=== PATIENT | female | born 1930 | race Two or more races ===

== ENCOUNTER 2016-07-30 15:30 | Inpatient (IN) | payer MEDICARE ==
--- NOTE | 2016-07-30 17:00 | ED Physician Chart ---
Chief Complaint/HPI - Patient Information Date Seen:: 07/30/16 Time Seen:: 17:00 Chief Complaint:: FALL FROM A WHEEL CHAIR History of Present Illness:: This 86-year-old female was brought in by EMS after being found on the floor next to her bed. It is assumed the patient had an unwitnessed fall onto the carpet next to her bed. The patient was noted to have a fall earlier this a.m. from her wheelchair. The patient has been having frequent falling and is a fall risk. The patient is severely demented and unable to provide any additional information. Allergies:: Allergies Allergy/AdvReac Type Severity Reaction Status Date / Time No Known Allergies Allergy Verified 07/30/16 15:41 Vitals:: Vital Signs - 8 hr 07/30/16 15:42 Temp 98.0 F HR 72 RR 16 BP 134/84 O2 Sat % 97 Historian:: EMS, Other Review of Systems - Review of Systems General/Constitutional: Other ( This patient is demented and I am unable to obtain a reliable review of systems.) Past Medical History - Past Medical History Past Medical History: HTN, Dyslipidemia, Dementia Social History: Non Smoker, No Alcohol, No Drug Use, Care Facility Surgical History: None Medication: Reviewed Family Medical History - Family Member Mother History Unknown: Yes Physical Exam - Physical Examination General/Constitutional: Well-developed, well-nourished, No distress Other Gen/Cons comments:: Awake but not fully alert. Confused. Follow simple commands. Not ambulatory. Other Head comments:: The patient has a area of ecchymotic discoloration lateral to an above the left eye. There is also a palpable hematoma in the same region. The patient denies tenderness in the region. Eyes: Lids, conjuctiva normal, PERRL Other Eyes comments:: Unable to cooperate with the EOM examinations. Other Skin comments:: Ecchymotic discoloration as noted above ENMT: External ears, nose nl, Oropharynx nl, Tonsils nl Neck: Nontender, No JVD, No nuchal rigidity, No mass Respiratory: Nl effort/Exclusion, Clear to Auscultation, No Wheeze/Rhonchi/Rales Cardio Vascular: RRR, No murmur, gallop, rubs, NL S1 S2 GI: No tenderness/rebounding/guarding, No organomegaly, Normal BS's, Nondistended, No mass/bruits : No CVA tenderness Extremities: No tenderness or effusion, Full ROM Other Extremities comments:: Patient has no deformities of the upper or lower extremities. She has spontaneous movement of all four extremities but generalized weakness consistent with her age and sex. Other Neuro/Psych comments:: the patient is awake but not alert or cognizant. She follow some simple commands. Cranial nerves two through 11 appear intact. Patient has generalized weakness but moves all four extremities. Sensation is intact to light touch. Misc: Normal back, No paraspinal tenderness Other Misc comments:: No tenderness of the thoracic or lumbar spine. Labs/Radiology/EKG Results - Lab Results Results: Laboratory Last Values WBC 9.9 Th/cmm (4.8-10.8) 07/30/16 22:55 RBC 4.95 Mil/cmm (3.80-5.20) 07/30/16 22:55 Hgb 14.7 gm/dL (11.7-16.1) 07/30/16 22:55 Hct 43.5 % (35.0-45.0) 07/30/16 22:55 MCV 87.9 fl (81-100) 07/30/16 22:55 MCH 29.7 pg (27.0-31.0) 07/30/16 22:55 MCHC Differential 33.8 pg (28.0-36.0) 07/30/16 22:55 RDW 12.7 % (11.5-20.0) 07/30/16 22:55 Plt Count 356 Th/cmm (150-400) 07/30/16 22:55 MPV 7.5 fl 07/30/16 22:55 Neutrophils % 81.5 % (40.0-80.0) H 07/30/16 22:55 Lymphocytes % 12.3 % (20.0-50.0) L 07/30/16 22:55 Monocytes % 4.7 % (2.0-10.0) 07/30/16 22:55 Eosinophils % 1.5 % (0.0-5.0) 07/30/16 22:55 Basophils % 0.0 % (0.0-2.0) 07/30/16 22:55 Sodium 138 mEq/L (136-145) 07/30/16 22:55 Potassium 4.2 mEq/L (3.5-5.1) 07/30/16 22:55 Chloride 105 mEq/L (98-107) 07/30/16 22:55 Carbon Dioxide 28.8 mEq/L (21.0-31.0) 07/30/16 22:55 Anion Gap 8.4 (7.0-16.0) 07/30/16 22:55 BUN 23 mg/dL (7-25) 07/30/16 22:55 Creatinine 0.5 mg/dL (0.6-1.2) L 07/30/16 22:55 Est GFR ( Amer) TNP 07/30/16 22:55 Est GFR (Non-Af Amer) TNP 07/30/16 22:55 BUN/Creatinine Ratio 46.0 07/30/16 22:55 Glucose 115 mg/dL (70-105) H 07/30/16 22:55 Calcium 10.3 mg/dL (8.6-10.3) 07/30/16 22:55 Urine Source RANDOM 07/31/16 11:55 Urine Color YELLOW 07/31/16 11:55 Urine Clarity TURBID (CLEAR) H 07/31/16 11:55 Urine pH 6.5 07/31/16 11:55 Ur Specific [place] 1.020 (1.005-1.030) 07/31/16 11:55 Urine Protein 100 mg/dL (NEGATIVE) H 07/31/16 11:55 Urine Glucose (UA) NEGATIVE mg/dL (NEGATIVE) 07/31/16 11:55 Urine Ketones 15 mg/dL (NEGATIVE) H 07/31/16 11:55 Urine Blood LARGE (NEGATIVE) H 07/31/16 11:55 Urine Nitrate NEGATIVE (NEGATIVE) 07/31/16 11:55 Urine Bilirubin SMALL (NEGATIVE) H 07/31/16 11:55 Urine Urobilinogen 4.0 E.U./dL (0.2 - 1.0) H 07/31/16 11:55 Ur Leukocyte Esterase MODERATE (NEGATIVE) H 07/31/16 11:55 Urine RBC >100 /hpf (0-5) H 07/31/16 11:55 Urine WBC 50-100 /hpf (0-5) H 07/31/16 11:55 Ur Epithelial Cells FEW /lpf (FEW) 07/31/16 11:55 Urine Bacteria MODERATE /hpf (NONE SEEN) 07/31/16 11:55 LAB INTERPRETATION: the CBC is unremarkable in that there is no leukocytosis or anemia. Electrolytes were all within normal parameters. Renal function is normal. The glucose is mildly elevated. The UA is consistent with an acute UTI. CT scan of the head and cervical spine was negative for any acute traumatic injury. The expected degenerative changes are present. Assessment - Assessment General Assessment: CASE SUMMARY: this 86-year-old female was brought to the emergency department from her nursing facility after a second fall today and evidence of fresh facial injury. CT scan of the head and C-spine was negative for any acute traumatic findings. The UA is consistent with a UTI. The case was discussed with the patient's primary care physician, DR HERMAN and he will admit the patient for further evaluation of her fall risk NOT and what measures might be taken to prevent further falling. MDM DDX OF FALL WITH HEAD INJURY. NOT Skull fracture based on negative CT of the head. NOT Intracranial hemorrhage based on negative CT scan. NOT Cervical spine fracture based on negative CT of the C-spine. NOT Hip Fractured based on physical examination. ED Septic Shock - . Is Septic Shock (SBP<90, OR Lactate>4 mmol\L) present?: No - <6hrs of presentation: Vital Signs: Vital Signs - 8 hr 07/30/16 15:42 Temp 98.0 F HR 72 RR 16 BP 134/84 O2 Sat % 97 Reassessment (Disposition) - Reassessment Reassessment Condition:: Unchanged - Diagnosis Diagnosis:: FALL RISK. CONTUSION LT FOREHEAD. DEMENTIA. HYPERTENSION. ED Discharge Plan - Patient Disposition Admit/Discharge/Transfer: Acute Care w/in this hosp Condition at Disposition: Improved
[2016-07-30 22:39] VITALS: BP 138/78
[2016-07-30] MEDS ORDERED: cefTRIAXone 1 GM in Sodium Chloride 0.9% 50 ML IV SCH (22:45)
[2016-07-30] MEDS ORDERED: Fleet Enema 135 mL RC PRN (23:05)
[2016-07-30] MEDS ORDERED: Acetaminophen 500 MG TAB PO PRN (23:05)
[2016-07-30] MEDS ORDERED: Magnesium Hydroxide (MOM) 30 mL UDC PO PRN (23:05)
[2016-07-30 23:11] LABS: % EOSINOPHILS 1.5 % (0.0-5.0); % LYMPHOCYTES 12.3 % (20.0-50.0); % MONOCYTES 4.7 % (2.0-10.0); % NEUTROPHILS 81.5 % (40.0-80.0); HEMATOCRIT 43.5 % (35.0-45.0); HEMOGLOBIN 14.7 gm/dL (11.7-16.1); MEAN CELL VOLUME 87.9 fl (81-100); MEAN CORPUSCULAR HEMOGLOBIN 29.7 pg (27.0-31.0); MEAN CORPUSCULAR HGB CONC 33.8 pg (28.0-36.0); MEAN PLATELET VOLUME 7.5 fl; NEUTROPHILE ABSOLUTE 8.1 Th/cmm (1.8-8.0); PLATELET COUNT 356 Th/cmm (150-400); RED BLOOD COUNT 4.95 Mil/cmm (3.80-5.20); RED CELL DISTRIBUTION WIDTH 12.7 % (11.5-20.0); WHITE BLOOD COUNT 9.9 Th/cmm (4.8-10.8)
[2016-07-30 23:19] LABS: ANION GAP 8.4 (7.0-16.0); BUN - UREA NITROGEN 23 mg/dL (7-25); CALCIUM SERUM 10.3 mg/dL (8.6-10.3); CARBON DIOXIDE 28.8 mEq/L (21.0-31.0); CHLORIDE 105 mEq/L (98-107); CREATININE - SERUM 0.5 mg/dL (0.6-1.2); GLUCOSE 115 mg/dL (70-105); POTASSIUM SERUM 4.2 mEq/L (3.5-5.1); SODIUM SERUM 138 mEq/L (136-145)
--- NOTE | 2016-07-31 06:49 | Consultation ---
Consult Note - Consult Note Service Date: 07/31/16 Referring Physician: Spencer Saldivar Consult Note: PHYSICIAN Consultation Note: Date of Admission: 07/30/16 Purpose of Consultation: suspect sepsis Chief Complaint: frequent falls. History of Present Illness: Patient LUIS QUESADA was admitted to location Medical/Surgical Unit I with S/P FALL, HEAD TRAUMA. 86 Y F female with PMH of dementia, HTN and hyperlipidemia brought from SNF for frequent falls and recent fall y'day. She is very confused and unable provide any history. ID consult was called to r/o sepsis. On initial evaluation, her temperature was 98 degree F and WBC count was 9900. Allergies Allergy/AdvReac Type Severity Reaction Status Date / Time No Known Allergies Allergy Verified 07/30/16 15:41 Vital Signs Temp 97.5 F 07/31/16 04:00 Pulse 90 07/31/16 04:00 Resp 18 07/31/16 04:00 BP 101/60 07/31/16 04:00 Pulse Ox 95 07/31/16 04:00 Intake & Output 07/30/16 07/30/16 07/31/16 06:59 18:59 06:59 Intake Total 0 Output Total 0 Balance 0 Intake: Oral 0 Output: Stool 0 Other: # Voids 3 Laboratory Results - last 24 hr 07/30/16 07/30/16 22:55 22:55 WBC 9.9 RBC 4.95 Hgb 14.7 Hct 43.5 MCV 87.9 MCH 29.7 MCHC Differential 33.8 RDW 12.7 Plt Count 356 MPV 7.5 Neutrophils % 81.5 H Lymphocytes % 12.3 L Monocytes % 4.7 Eosinophils % 1.5 Basophils % 0.0 Sodium 138 Potassium 4.2 Chloride 105 Carbon Dioxide 28.8 Anion Gap 8.4 BUN 23 Creatinine 0.5 L Est GFR ( Amer) TNP Est GFR (Non-Af Amer) TNP BUN/Creatinine Ratio 46.0 Glucose 115 H Calcium 10.3 Home Medication Medication Instructions Recorded Type Acetaminophen [Tylenol Extra 1,000 mg PO Q4HR PRN 07/30/16 History Strength] Acetaminophen [Tylenol] 650 mg PO Q4HR PRN 07/30/16 History Aspirin [Aspirin Chewable] 81 mg PO DAILY 07/30/16 History Atorvastatin Calcium [Lipitor] 40 mg PO HS 07/30/16 History Bisacodyl [Dulcolax 10 Mg Supp] 10 mg RC DAILY PRN 07/30/16 History Cholecalciferol (Vit D3) [Vitamin 1,000 iu PO DAILY 07/30/16 History D3] Docusate Sodium [Colace] 100 mg PO BID 07/30/16 History Donepezil Hcl [Aricept] 10 mg PO DAILY 07/30/16 History Fleet Enema [Fleet Enema] 135 ml RC Q48H PRN 07/30/16 History Magnesium Hydroxide [Milk of 30 ml PO HS PRN 07/30/16 History Magnesia] Memantine [Namenda] 10 mg PO HS 07/30/16 History amLODIPine Besylate [Norvasc] 10 mg PO DAILY 07/30/16 History Current Medications Generic Name Dose Route Start Last Admin Trade Name Freq PRN Reason Stop Dose Admin Acetaminophen 1,000 mg 07/30/16 23:05 Tylenol Extra Strength PO Q4HR PRN MOD PAIN Acetaminophen 650 mg 07/30/16 23:13 Tylenol PO 09/28/16 23:12 Q4H PRN MILD PAIN(1-3) Acetaminophen 650 mg 07/30/16 23:15 Tylenol PO 09/28/16 23:14 Q4H PRN FOR FEVER TEMP>101 Amlodipine Besylate 10 mg 07/31/16 09:00 Norvasc PO 09/29/16 08:59 DAILY [facility] Aspirin 81 mg 07/31/16 09:00 Aspirin Chewable PO 09/29/16 08:59 DAILY [facility] Atorvastatin Calcium 40 mg 07/31/16 21:00 Lipitor PO 09/29/16 20:59 HS [facility] Bisacodyl 10 mg 07/30/16 23:05 Dulcolax 10 Mg Supp RC 09/28/16 23:04 DAILY PRN Constipation Cholecalciferol 1,000 iu 07/31/16 09:00 Vitamin D3 PO 09/29/16 08:59 DAILY [facility] Docusate Sodium 100 mg 07/31/16 09:00 Colace PO 09/29/16 08:59 BID [facility] Donepezil HCl 10 mg 07/31/16 09:00 Aricept PO 09/29/16 08:59 DAILY [facility] Magnesium Hydroxide 30 ml 07/30/16 23:05 Milk Of Magnesia PO 09/28/16 23:04 HS PRN Constipation Memantine 10 mg 07/31/16 21:00 Namenda PO 09/29/16 20:59 HS [facility] Sodium Phosphate 135 ml 07/30/16 23:05 Fleet Enema RC 09/28/16 23:04 Q48H PRN IF DULCOLAX INEFFECTIVE Review of Systems: A 12 point ROS was reviewed with the pertinent positive and negatives noted in the HPI. Past Medical History Hx Diabetes No Hx HTN Yes Hx COPD No Hx Stroke No Hx Seizure No Hx Renal Disease No Hepatitis No Bleeding Problems No Depression No VRE No MRSA No Hx Dizziness No Anxiety No Hx Arthritis No Hx Asthma No Hx Blood Transfusion Reaction No Hx Cardiac Disease No Other Emotional/Behavior DEMENTIA Disorder Hx Eating Disorder No Hx Fainting/Syncope No Hx GI Problems/Ulcer No TB Diagnosis In Past 2 Years No Social History Smoking Status Unknown if ever smoked Drug Use No Alcohol Use UNKNOWN Family Medical History Nonsignificant. Physical Exam: General: Well nourished and well developed. No Acute Distress HEENT: EOMI Bilaterally, PERRLA Bilaterally, Head is normocephalic, atraumatic on inspection. Neck: Supple no JVD. Cardio: +S1/S2 Auscultated, RRR, no murmurs/rubs/gallops noted Respiratory: Clear to Auscultate Bilaterally Abdominal: Soft, Nondistended, Nontender to palpation x 4 quadrants Genital/Urinary: Extremities: No Edema noted in the lower extremities Neurological: Confused Cranial Nerves II-XII intact bilaterally, Gait Steady, No Focal Deficits noted. Assessment/Plan: 1. Frequent falls, r/o sepsis. There is no dign of sepsis. 2. Dementia 3. HTN. 4. Hyperlipidemia. Recommendations: Check the sepsis w/u. Check Hip X ray. Signed, Bill Gilbert M.D. [id number]/31/[id number]
[2016-07-31] MEDS: Aspirin 81mg Chewable Tab PO SCH (09:35)
--- NOTE | 2016-07-31 10:32 | Diagnostic Imaging Report ---
Pelvis (single view) HISTORY: Pain, fall The hip joints appear normal. No acute bony abnormalities. No fractures identified. Degenerative changes seen in the visualized lower lumbar spine. IMPRESSION: No acute abnormalities
--- NOTE | 2016-07-31 10:32 | Diagnostic Imaging Report ---
Right hip (2 views) HISTORY: Pain Joint space appears normal. The femoral head exhibits a normal contour. No focal lesions. No fractures. IMPRESSION: No acute abnormalities
--- NOTE | 2016-07-31 10:33 | Diagnostic Imaging Report ---
Left hip (2 views) HISTORY: Pain, trauma The joint space appears normal. The femoral head exhibits a normal contour. No focal lesions. No fractures. IMPRESSION: No acute abnormalities
[2016-07-31 14:01] LABS: URINE BILIRUBIN SMALL (NEGATIVE); URINE BLOOD LARGE (NEGATIVE); URINE COLOR YELLOW; URINE GLUCOSE (UA) NEGATIVE (NEGATIVE); URINE KETONE 15 mg/dL (NEGATIVE); URINE PH 6.5; URINE PROTEIN 100 mg/dL (NEGATIVE)
[2016-07-31 14:10] LABS: URINE EPITHELIAL CELLS FEW /lpf (FEW); URINE RBC >100 /hpf (0-5); URINE WBC 50-100 /hpf (0-5)
[2016-07-31 14:11] LABS: URINE BACTERIA MODERATE /hpf (NONE SEEN)
[2016-07-31] MEDS: Atorvastatin Calcium 10 MG TAB PO SCH (21:00)
--- NOTE | 2016-07-31 22:37 | History & Physical ---
This patient was brought from [facility]. Essentially, the patient fell and hit her face and the patient had head trauma, facial trauma with discoloration, and subcutaneous hematoma. The patient has lost of consciousness. The patient had a CAT scan in the Emergency Room. The Emergency Room report was negative. The patient's vital signs were stable. The patient was admitted from the ER. The patient has history of hypertension, history of hyperlipidemia, and history of dementia. The patient has history of frequent falls and the patient has no known allergies. PHYSICAL EXAMINATION: GENERAL: The patient is alert and oriented, well nourished, well-developed. HEENT: Normal. NECK: Supple. CARDIOVASCULAR: S1 and S2 heard. ABDOMEN: Soft. Bowel sounds are heard. MEDICAL NUMERICAL CONTROL OPERATOR: The patient was confused. DIAGNOSES: 1. History of falls. 2. History of rule out sepsis. 3. History of dementia. 4. History of hypertension and hyperlipidemia. 5. Scalp hematoma. The patient was admitted. The patient will have multiple x-rays. I will follow the patient and I will have Dr. Gilbert to see the patient. I will follow the patient. JOB# [id number]
[2016-08-01] MEDS: Aspirin 81mg Chewable Tab PO SCH (09:52)
--- NOTE | 2016-08-01 18:25 | General Progress Note ---
Subjective - Review of Systems Service Date: 08/01/16 Objective - Results Result Diagrams: 07/30/16 22:55 07/30/16 22:55 Recent Labs: Laboratory Last Values WBC 9.9 Th/cmm (4.8-10.8) 07/30/16 22:55 RBC 4.95 Mil/cmm (3.80-5.20) 07/30/16 22:55 Hgb 14.7 gm/dL (11.7-16.1) 07/30/16 22:55 Hct 43.5 % (35.0-45.0) 07/30/16 22:55 MCV 87.9 fl (81-100) 07/30/16 22:55 MCH 29.7 pg (27.0-31.0) 07/30/16 22:55 MCHC Differential 33.8 pg (28.0-36.0) 07/30/16 22:55 RDW 12.7 % (11.5-20.0) 07/30/16 22:55 Plt Count 356 Th/cmm (150-400) 07/30/16 22:55 MPV 7.5 fl 07/30/16 22:55 Neutrophils % 81.5 % (40.0-80.0) H 07/30/16 22:55 Lymphocytes % 12.3 % (20.0-50.0) L 07/30/16 22:55 Monocytes % 4.7 % (2.0-10.0) 07/30/16 22:55 Eosinophils % 1.5 % (0.0-5.0) 07/30/16 22:55 Basophils % 0.0 % (0.0-2.0) 07/30/16 22:55 Sodium 138 mEq/L (136-145) 07/30/16 22:55 Potassium 4.2 mEq/L (3.5-5.1) 07/30/16 22:55 Chloride 105 mEq/L (98-107) 07/30/16 22:55 Carbon Dioxide 28.8 mEq/L (21.0-31.0) 07/30/16 22:55 Anion Gap 8.4 (7.0-16.0) 07/30/16 22:55 BUN 23 mg/dL (7-25) 07/30/16 22:55 Creatinine 0.5 mg/dL (0.6-1.2) L 07/30/16 22:55 Est GFR ( Amer) TNP 07/30/16 22:55 Est GFR (Non-Af Amer) TNP 07/30/16 22:55 BUN/Creatinine Ratio 46.0 07/30/16 22:55 Glucose 115 mg/dL (70-105) H 07/30/16 22:55 Calcium 10.3 mg/dL (8.6-10.3) 07/30/16 22:55 Urine Source RANDOM 07/31/16 11:55 Urine Color YELLOW 07/31/16 11:55 Urine Clarity TURBID (CLEAR) H 07/31/16 11:55 Urine pH 6.5 07/31/16 11:55 Ur Specific [place] 1.020 (1.005-1.030) 07/31/16 11:55 Urine Protein 100 mg/dL (NEGATIVE) H 07/31/16 11:55 Urine Glucose (UA) NEGATIVE mg/dL (NEGATIVE) 07/31/16 11:55 Urine Ketones 15 mg/dL (NEGATIVE) H 07/31/16 11:55 Urine Blood LARGE (NEGATIVE) H 07/31/16 11:55 Urine Nitrate NEGATIVE (NEGATIVE) 07/31/16 11:55 Urine Bilirubin SMALL (NEGATIVE) H 07/31/16 11:55 Urine Urobilinogen 4.0 E.U./dL (0.2 - 1.0) H 07/31/16 11:55 Ur Leukocyte Esterase MODERATE (NEGATIVE) H 07/31/16 11:55 Urine RBC >100 /hpf (0-5) H 07/31/16 11:55 Urine WBC 50-100 /hpf (0-5) H 07/31/16 11:55 Ur Epithelial Cells FEW /lpf (FEW) 07/31/16 11:55 Urine Bacteria MODERATE /hpf (NONE SEEN) 07/31/16 11:55 - Physical Exam Vitals and I&O: Vital Signs Temp 97.7 F 08/01/16 15:54 Pulse 65 08/01/16 15:54 Resp 18 08/01/16 15:54 BP 147/78 08/01/16 15:54 Pulse Ox 98 08/01/16 15:54 Intake & Output 07/31/16 08/01/16 08/01/16 18:59 06:59 18:59 Intake Total 1117 236 7946 Balance 6232 603 6526 Intake: Oral 9630 144 9745 Other: # Voids 3 1 3 Active Medications: Current Medications Acetaminophen (Tylenol Extra Strength) 1,000 mg PO Q4HR PRN PRN Reason: MOD PAIN Acetaminophen (Tylenol) 650 mg PO Q4H PRN PRN Reason: MILD PAIN(1-3) Stop: 09/28/16 23:12 Acetaminophen (Tylenol) 650 mg PO Q4H PRN PRN Reason: FOR FEVER TEMP>101 Stop: 09/28/16 23:14 Amlodipine Besylate (Norvasc) 10 mg PO DAILY [facility] Stop: 09/29/16 08:59 Last Admin: 08/01/16 09:52 Dose: 10 mg Aspirin (Aspirin Chewable) 81 mg PO DAILY [facility] Stop: 09/29/16 08:59 Last Admin: 08/01/16 09:52 Dose: 81 mg Atorvastatin Calcium (Lipitor) 40 mg PO HS [facility] Stop: 09/29/16 20:59 Last Admin: 07/31/16 21:00 Dose: 40 mg Bisacodyl (Dulcolax 10 Mg Supp) 10 mg RC DAILY PRN PRN Reason: Constipation Stop: 09/28/16 23:04 Cholecalciferol (Vitamin D3) 1,000 iu PO DAILY [facility] Stop: 09/29/16 08:59 Last Admin: 08/01/16 09:52 Dose: 1,000 iu Docusate Sodium (Colace) 100 mg PO BID [facility] Stop: 09/29/16 08:59 Last Admin: 08/01/16 16:48 Dose: 100 mg Donepezil HCl (Aricept) 10 mg PO DAILY [facility] Stop: 09/29/16 08:59 Last Admin: 08/01/16 09:52 Dose: 10 mg Magnesium Hydroxide (Milk Of Magnesia) 30 ml PO HS PRN PRN Reason: Constipation Stop: 09/28/16 23:04 Memantine (Namenda) 10 mg PO HS [facility] Stop: 09/29/16 20:59 Last Admin: 07/31/16 21:14 Dose: 10 mg Sodium Phosphate (Fleet Enema) 135 ml RC Q48H PRN PRN Reason: IF DULCOLAX INEFFECTIVE Stop: 09/28/16 23:04 Assessment/Plan - Problem List Patient Problems: All Active Problems FREQUENT FALLS WITH LEFT FRONTAL ECCYMOS (Acute)
--- NOTE | 2016-08-01 19:51 | Consultation ---
HISTORY OF PRESENT ILLNESS: This patient is 86-year-old. The patient is in long term. The patient fell and hit the face. She has some ecchymosis of the left periorbital area. Apparently, she had a CT scan done, which is reported to be negative, does not show any acute process. She also had a CT scan done of the cervical spine which is negative, no acute process and no subluxation. The patient is lying in bed. She is awake. She is confused. Has not been able to get of much yet. She moves both upper and lower extremities. The patient ____. PAST MEDICAL HISTORY: Hypertension, hyperlipidemia and dementia. The patient with ataxia and frequent falls. MEDICATIONS: As per reconciliation. SOCIAL HISTORY: Does not smoke or drink. REVIEW OF SYSTEMS: Twelve point negative except for above. PHYSICAL EXAMINATION: VITAL SIGNS: Temperature 98.2, blood pressure 130/70 and pulse is 74. NECK: Supple. No neck bruits. HEART: Sounds S1 and S2. LUNGS: Clear. ABDOMEN: Soft. NEUROLOGIC: Awake, alert and active. She will answer questions, gives me her name, but does not give me age. She does not know what day it is and what month. She is able to name simple objects. CRANIAL: Pupils react to light. She has ecchymosis around the left eye area. Pupils are reactive. She states she can see okay. Moves eyes in all directions. No facial weakness. MOTOR: She will lift both arms up. I do not see any increased tone. Legs: She will withdraw them both. Tone seems to be okay. REFLEXES: A -1 in upper extremity. I could not get in the lower extremity. INVESTIGATIONS: CT scan head negative as above. This time some mild left frontal scalp soft issues. The patient's surgical spine okay. No acute process. LABORATORY DATA: WBC 9.9, hemoglobin 14.7 and platelets normal. UA: WBC 5200, bacteria moderate. IMPRESSION: 1. Ataxia. 2. Fall. 3. Head injury. 4. Dementia. 5. Hypertension. 6. Hyperlipidemia. MANAGEMENT: At the ____ moment, the patient is very high risk for falls. I will recommend physical therapy, ambulation and proportions for ambulation and fall. JOB# [id number]
--- NOTE | 2016-08-01 20:15 | Admit Criteria Form ---
Admit Criteria Forms - Admit Criteria Diagnosis: HEAD AND NECK DISEASE GRG Clinical Indications for Admission to Inpatient Care ( Place 'X' for any and all applicable criteria): Hospital admission is needed for appropriate care of the patient because of ANY ONE of the following (1)(2): [ ]I. Severe sinusitis as indicated by ANY ONE of the following (6)(13)(21) [ ]a) Suspected HOME THEATER SPECIALIST infection [ ]b) Bacteremia [ ]c) Hemodynamic instability [ ]d) Outpatient and observation care antibiotic treatment have failed or are not considered appropriate [ ]e) Surgical drainage needed that cannot be performed on an outpatient basis or observation. setting [ ]f) Suspected orbital involvement [ ]II. Acute glaucoma unresponsive to emergency treatment that requires medication or other treatment beyond the scope of observation care (1) [ ]III. Severe eye infection or inflammation (eg, uveitis) which is unresponsive to emergency treatment and requires medication or other treatment beyond the scope of observation care (1)(2)(3)(4) [ ]IV. Severe epistaxis requiring posterior packing (5)(6) [ ]V. Acute bacterial labyrinthitis(6)(7) [ ]. Viral labyrinthitis with symptoms uncontrollable on an outpatient or observation care basis (6)(7) [ ]VII. Severe necrotizing external otitis unresponsive to outpatient and observation care treatment(6) [ ]VIII. Otitis media requiring treatment beyond the scope of outpatient and observation care, as indicated by presence or persistence of ANY ONE of the following(6)(8)(9): [ ]a) Hemodynamic instability [ ]b) Mastoiditis [ ]c) Suspected HOME THEATER SPECIALIST infection [ ]d) Bacteremia [ ]e) Surgical drainage needed that cannot be performed as an outpatient. or in an observation setting. [ ]IX. Epiglottitis or supraglottitis(6)(11)(12)(13)(14) [ ]X. Stridor or laryngospasm (unresponsive to emergency management) (6)(11)( 12)(13)(14) [ ]XI. Acute pharyngitis or tonsillitis and ANY ONE of the following (14)(15)( 16): [ ]a) Hemodynamic instability remaining after emergency or observation level care (as appropriate) [ ]b) Surgical drainage needed that cannot be performed in outpatient or observation setting [ ]c) Mediastinitis [ ]d) Thrombophlebitis of internal jugular vein (Lemierre syndrome) [ ]XII. Sialoadenitis and ANY ONE of the following (17) (18) [ ]a) Hemodynamic instability remaining after emergency or observation level care(as appropriate) [ ]b) Surgical drainage needed that cannot be performed in outpatient or observation setting [ ]XIII. Airway blockage or inability to swallow (6)(12)(19)(20) [ ]XIV.Complicated infection indicated by ANY ONE of the following(6)(13)(21)(22 ): [ ]a) Abscess or swelling causing airway difficulty(12) [ ]b) Bacteremia [ ]c) Hemodynamic instability [ ]d) Suspected HOME THEATER SPECIALIST infection [ ]e) Outpatient and observation care antibiotic treatment have failed or are not considered appropriate [ ]f) Surgical drainage needed that cannot be performed on an outpatient basis or observation setting [ ]g) Other management need that cannot be performed in outpatient or observation setting: [X]XV. Severe trauma requiring inpatient medical treatment of eye, head, pharynx, or airway (1)([phone]) [ ]XVI. Ischemic optic neuropathy(11) [ ]XVII.Head or Neck Disease condition and ANY ONE of the following: [ ]a) Symptom or finding for which emergency and observation care have failed or are not considered appropriate (Also use General Criteria: Observation Care as appropriate) [ ]b) Presence of ANY ONE of the following: [ ]i) A General Admission Criteria [ ]ii) A Pediatric General Admission Criteria The original [facility] content created by [facility] has been revised. The portions of the content which have been revised are identified through the use of italic text or in bold, and [facility] has neither reviewed nor approved the modified material. All other unmodified content is copyright [facility]. Please see references footnoted in the original [facility] edition 2016 Admit Criteria Met?: Yes
[2016-08-01] MEDS: Atorvastatin Calcium 10 MG TAB PO SCH (20:51)
--- NOTE | 2016-08-02 09:03 | General Progress Note ---
Objective - Results Result Diagrams: 07/30/16 22:55 07/30/16 22:55 Recent Labs: Laboratory Last Values WBC 9.9 Th/cmm (4.8-10.8) 07/30/16 22:55 RBC 4.95 Mil/cmm (3.80-5.20) 07/30/16 22:55 Hgb 14.7 gm/dL (11.7-16.1) 07/30/16 22:55 Hct 43.5 % (35.0-45.0) 07/30/16 22:55 MCV 87.9 fl (81-100) 07/30/16 22:55 MCH 29.7 pg (27.0-31.0) 07/30/16 22:55 MCHC Differential 33.8 pg (28.0-36.0) 07/30/16 22:55 RDW 12.7 % (11.5-20.0) 07/30/16 22:55 Plt Count 356 Th/cmm (150-400) 07/30/16 22:55 MPV 7.5 fl 07/30/16 22:55 Neutrophils % 81.5 % (40.0-80.0) H 07/30/16 22:55 Lymphocytes % 12.3 % (20.0-50.0) L 07/30/16 22:55 Monocytes % 4.7 % (2.0-10.0) 07/30/16 22:55 Eosinophils % 1.5 % (0.0-5.0) 07/30/16 22:55 Basophils % 0.0 % (0.0-2.0) 07/30/16 22:55 Sodium 138 mEq/L (136-145) 07/30/16 22:55 Potassium 4.2 mEq/L (3.5-5.1) 07/30/16 22:55 Chloride 105 mEq/L (98-107) 07/30/16 22:55 Carbon Dioxide 28.8 mEq/L (21.0-31.0) 07/30/16 22:55 Anion Gap 8.4 (7.0-16.0) 07/30/16 22:55 BUN 23 mg/dL (7-25) 07/30/16 22:55 Creatinine 0.5 mg/dL (0.6-1.2) L 07/30/16 22:55 Est GFR ( Amer) TNP 07/30/16 22:55 Est GFR (Non-Af Amer) TNP 07/30/16 22:55 BUN/Creatinine Ratio 46.0 07/30/16 22:55 Glucose 115 mg/dL (70-105) H 07/30/16 22:55 Calcium 10.3 mg/dL (8.6-10.3) 07/30/16 22:55 Urine Source RANDOM 07/31/16 11:55 Urine Color YELLOW 07/31/16 11:55 Urine Clarity TURBID (CLEAR) H 07/31/16 11:55 Urine pH 6.5 07/31/16 11:55 Ur Specific [place] 1.020 (1.005-1.030) 07/31/16 11:55 Urine Protein 100 mg/dL (NEGATIVE) H 07/31/16 11:55 Urine Glucose (UA) NEGATIVE mg/dL (NEGATIVE) 07/31/16 11:55 Urine Ketones 15 mg/dL (NEGATIVE) H 07/31/16 11:55 Urine Blood LARGE (NEGATIVE) H 07/31/16 11:55 Urine Nitrate NEGATIVE (NEGATIVE) 07/31/16 11:55 Urine Bilirubin SMALL (NEGATIVE) H 07/31/16 11:55 Urine Urobilinogen 4.0 E.U./dL (0.2 - 1.0) H 07/31/16 11:55 Ur Leukocyte Esterase MODERATE (NEGATIVE) H 07/31/16 11:55 Urine RBC >100 /hpf (0-5) H 07/31/16 11:55 Urine WBC 50-100 /hpf (0-5) H 07/31/16 11:55 Ur Epithelial Cells FEW /lpf (FEW) 07/31/16 11:55 Urine Bacteria MODERATE /hpf (NONE SEEN) 07/31/16 11:55 - Physical Exam Vitals and I&O: Vital Signs Temp 97.5 F 08/02/16 04:00 Pulse 55 08/02/16 04:00 Resp 18 08/02/16 04:00 BP 143/64 08/02/16 04:00 Pulse Ox 100 08/02/16 04:00 Intake & Output 08/01/16 08/02/16 08/02/16 18:59 06:59 18:59 Intake Total 1200 350 Balance 1200 350 Intake: Oral 1200 350 Other: # Voids 3 2 Active Medications: Current Medications Acetaminophen (Tylenol Extra Strength) 1,000 mg PO Q4HR PRN PRN Reason: MOD PAIN Acetaminophen (Tylenol) 650 mg PO Q4H PRN PRN Reason: MILD PAIN(1-3) Stop: 09/28/16 23:12 Acetaminophen (Tylenol) 650 mg PO Q4H PRN PRN Reason: FOR FEVER TEMP>101 Stop: 09/28/16 23:14 Amlodipine Besylate (Norvasc) 10 mg PO DAILY [facility] Stop: 09/29/16 08:59 Last Admin: 08/01/16 09:52 Dose: 10 mg Aspirin (Aspirin Chewable) 81 mg PO DAILY [facility] Stop: 09/29/16 08:59 Last Admin: 08/01/16 09:52 Dose: 81 mg Atorvastatin Calcium (Lipitor) 40 mg PO HS [facility] Stop: 09/29/16 20:59 Last Admin: 08/01/16 20:51 Dose: 40 mg Bisacodyl (Dulcolax 10 Mg Supp) 10 mg RC DAILY PRN PRN Reason: Constipation Stop: 09/28/16 23:04 Cholecalciferol (Vitamin D3) 1,000 iu PO DAILY [facility] Stop: 09/29/16 08:59 Last Admin: 08/01/16 09:52 Dose: 1,000 iu Docusate Sodium (Colace) 100 mg PO BID [facility] Stop: 09/29/16 08:59 Last Admin: 08/01/16 16:48 Dose: 100 mg Donepezil HCl (Aricept) 10 mg PO DAILY [facility] Stop: 09/29/16 08:59 Last Admin: 08/01/16 09:52 Dose: 10 mg Magnesium Hydroxide (Milk Of Magnesia) 30 ml PO HS PRN PRN Reason: Constipation Stop: 09/28/16 23:04 Memantine (Namenda) 10 mg PO HS [facility] Stop: 09/29/16 20:59 Last Admin: 08/01/16 20:52 Dose: 10 mg Sodium Phosphate (Fleet Enema) 135 ml RC Q48H PRN PRN Reason: IF DULCOLAX INEFFECTIVE Stop: 09/28/16 23:04 Assessment/Plan - Problem List Patient Problems: All Active Problems FREQUENT FALLS WITH LEFT FRONTAL ECCYMOS (Acute)
[2016-08-02] MEDS: Aspirin 81mg Chewable Tab PO SCH (09:41)
--- NOTE | 2016-08-02 11:28 | Diagnostic Imaging Report ---
CT scan of the brain without intravenous contrast HISTORY: Headache, trauma Total DLP equals 601 CTDI equals 32.3 Axial sections were obtained from the base of the skull to the vertex. There is prominence/enlargement of the ventricular system size. Associated enlargement of cerebral sulci and subarachnoid cisterns. Findings are consistent with changes of generalized cerebral atrophy. No acute parenchymal abnormalities. No acute cerebral hemorrhage. Hypodensity is seen within the supratentorial white matter regions without mass effect. The findings may be associated with chronic small vessel ischemic disease. No extra-axial masses or abnormal fluid collections. IMPRESSION: 1. No acute abnormalities 2. Cerebral atrophy 3. Supratentorial white matter changes that may reflect chronic small vessel ischemic disease
--- NOTE | 2016-08-02 11:29 | Diagnostic Imaging Report ---
CT scan cervical spine HISTORY: Pain, trauma Total DLP equals 517 CTDI equals 24.3 Axial sections were obtained to the cervical spine. Additional sagittal and coronal reformatted images are provided. There are degenerative changes with hypertrophic spur formation noted about the endplates of C4 and a greater degree C5 and C6. Narrowing of the C5-6 interspace. Mild reversal of the cervical lordosis that may be associated with spasm. No acute abnormalities. No fractures. The prevertebral soft tissues appear normal. IMPRESSION: 1. No acute abnormalities 2. Degenerative changes
--- NOTE | 2016-08-02 13:55 | Infectious Disease Prog Note ---
Infectious Disease Subjective - Review of Systems Service Date: 08/02/16 Subjective: There is no fever. Infectious Disease Objective - Results Result Diagrams: 07/30/16 22:55 07/30/16 22:55 Recent Labs: Laboratory Last Values WBC 9.9 Th/cmm (4.8-10.8) 07/30/16 22:55 RBC 4.95 Mil/cmm (3.80-5.20) 07/30/16 22:55 Hgb 14.7 gm/dL (11.7-16.1) 07/30/16 22:55 Hct 43.5 % (35.0-45.0) 07/30/16 22:55 MCV 87.9 fl (81-100) 07/30/16 22:55 MCH 29.7 pg (27.0-31.0) 07/30/16 22:55 MCHC Differential 33.8 pg (28.0-36.0) 07/30/16 22:55 RDW 12.7 % (11.5-20.0) 07/30/16 22:55 Plt Count 356 Th/cmm (150-400) 07/30/16 22:55 MPV 7.5 fl 07/30/16 22:55 Neutrophils % 81.5 % (40.0-80.0) H 07/30/16 22:55 Lymphocytes % 12.3 % (20.0-50.0) L 07/30/16 22:55 Monocytes % 4.7 % (2.0-10.0) 07/30/16 22:55 Eosinophils % 1.5 % (0.0-5.0) 07/30/16 22:55 Basophils % 0.0 % (0.0-2.0) 07/30/16 22:55 Sodium 138 mEq/L (136-145) 07/30/16 22:55 Potassium 4.2 mEq/L (3.5-5.1) 07/30/16 22:55 Chloride 105 mEq/L (98-107) 07/30/16 22:55 Carbon Dioxide 28.8 mEq/L (21.0-31.0) 07/30/16 22:55 Anion Gap 8.4 (7.0-16.0) 07/30/16 22:55 BUN 23 mg/dL (7-25) 07/30/16 22:55 Creatinine 0.5 mg/dL (0.6-1.2) L 07/30/16 22:55 Est GFR ( Amer) TNP 07/30/16 22:55 Est GFR (Non-Af Amer) TNP 07/30/16 22:55 BUN/Creatinine Ratio 46.0 07/30/16 22:55 Glucose 115 mg/dL (70-105) H 07/30/16 22:55 Calcium 10.3 mg/dL (8.6-10.3) 07/30/16 22:55 Urine Source RANDOM 07/31/16 11:55 Urine Color YELLOW 07/31/16 11:55 Urine Clarity TURBID (CLEAR) H 07/31/16 11:55 Urine pH 6.5 07/31/16 11:55 Ur Specific [place] 1.020 (1.005-1.030) 07/31/16 11:55 Urine Protein 100 mg/dL (NEGATIVE) H 07/31/16 11:55 Urine Glucose (UA) NEGATIVE mg/dL (NEGATIVE) 07/31/16 11:55 Urine Ketones 15 mg/dL (NEGATIVE) H 07/31/16 11:55 Urine Blood LARGE (NEGATIVE) H 07/31/16 11:55 Urine Nitrate NEGATIVE (NEGATIVE) 07/31/16 11:55 Urine Bilirubin SMALL (NEGATIVE) H 07/31/16 11:55 Urine Urobilinogen 4.0 E.U./dL (0.2 - 1.0) H 07/31/16 11:55 Ur Leukocyte Esterase MODERATE (NEGATIVE) H 07/31/16 11:55 Urine RBC >100 /hpf (0-5) H 07/31/16 11:55 Urine WBC 50-100 /hpf (0-5) H 07/31/16 11:55 Ur Epithelial Cells FEW /lpf (FEW) 07/31/16 11:55 Urine Bacteria MODERATE /hpf (NONE SEEN) 07/31/16 11:55 - Physical Exam Vitals and I&O: Vital Signs Temp 97.9 F 08/02/16 08:05 Pulse 63 08/02/16 09:41 Resp 17 08/02/16 08:05 BP 144/68 08/02/16 09:41 Pulse Ox 97 08/02/16 08:05 Intake & Output 08/01/16 08/02/16 08/02/16 18:59 06:59 18:59 Intake Total 1200 350 Balance 1200 350 Intake: Oral 1200 350 Other: # Voids 3 2 Active Medications: Current Medications Acetaminophen (Tylenol Extra Strength) 1,000 mg PO Q4HR PRN PRN Reason: MOD PAIN Acetaminophen (Tylenol) 650 mg PO Q4H PRN PRN Reason: MILD PAIN(1-3) Stop: 09/28/16 23:12 Acetaminophen (Tylenol) 650 mg PO Q4H PRN PRN Reason: FOR FEVER TEMP>101 Stop: 09/28/16 23:14 Amlodipine Besylate (Norvasc) 10 mg PO DAILY [facility] Stop: 09/29/16 08:59 Last Admin: 08/02/16 09:41 Dose: 10 mg Aspirin (Aspirin Chewable) 81 mg PO DAILY [facility] Stop: 09/29/16 08:59 Last Admin: 08/02/16 09:41 Dose: 81 mg Atorvastatin Calcium (Lipitor) 40 mg PO HS [facility] Stop: 09/29/16 20:59 Last Admin: 08/01/16 20:51 Dose: 40 mg Bisacodyl (Dulcolax 10 Mg Supp) 10 mg RC DAILY PRN PRN Reason: Constipation Stop: 09/28/16 23:04 Cholecalciferol (Vitamin D3) 1,000 iu PO DAILY [facility] Stop: 09/29/16 08:59 Last Admin: 08/02/16 09:41 Dose: 1,000 iu Docusate Sodium (Colace) 100 mg PO BID [facility] Stop: 09/29/16 08:59 Last Admin: 08/02/16 09:41 Dose: 100 mg Donepezil HCl (Aricept) 10 mg PO DAILY [facility] Stop: 09/29/16 08:59 Last Admin: 08/02/16 09:41 Dose: 10 mg Magnesium Hydroxide (Milk Of Magnesia) 30 ml PO HS PRN PRN Reason: Constipation Stop: 09/28/16 23:04 Memantine (Namenda) 10 mg PO HS [facility] Stop: 09/29/16 20:59 Last Admin: 08/01/16 20:52 Dose: 10 mg Sodium Phosphate (Fleet Enema) 135 ml RC Q48H PRN PRN Reason: IF DULCOLAX INEFFECTIVE Stop: 09/28/16 23:04 General: no acute distress, well developed, well nourished HEENT: atraumatic, normocephalic, PERRLA Neck: supple, no thyromegaly, no lymphadenopathy Cardiovascular: S1S2, regular Lungs: clear to auscultation bilaterally, clear to percussion Abdomen: soft, no tender, no distended Extremities: no cyanosis, no clubbing, no edema Neurological: awake, alert, oriented, CN 2-12 intact Skin: intact Infectious Disease Assmt/Plan - Problem List Patient Problems: All Active Problems FREQUENT FALLS WITH LEFT FRONTAL ECCYMOS (Acute) - Assessment Assessment: 1. Frequent falls. 2. Dementia. 3. HTN. - Plan Plan: Off antibiotics. There is no evedence of infectious etiology at this time.
--- NOTE | 2016-08-09 19:23 | Discharge Summary ---
HOSPITAL COURSE: The patient was admitted from residential to the Emergency Room with complaint of unwitnessed fall. From ER, the patient went through a series of CT scan of the head and cervical spine, which came out negative. X-ray of the hip came out also negative for any fracture. The patient was admitted on the floor with the diagnosis of status post fall, contusion on the left forehead. The patient then was discharged back to [facility]. DISCHARGE DIAGNOSIS: Status post fall, left forehead contusion, dementia, hypertension, and chronic obstructive pulmonary disease. JOB# [id number]
== END 2016-08-02 15:03 | DRG 604 ==
LOC: ER 15:30 → MSI 19:30
PROVIDERS: ADMIT Internal Medicine; ATTEND Internal Medicine
DX: S00.03XA Contusion of scalp, initial encounter (principal); G92 Toxic encephalopathy; F03.90 Unspecified dementia, unspecified severity, without behavioral disturbance, psychotic disturbance, mood disturbance, and anxiety; N39.0 Urinary tract infection, site not specified; E78.5 Hyperlipidemia, unspecified; I10 Essential (primary) hypertension; W05.0XXA Fall from non-moving wheelchair, initial encounter; Y93.89 Activity, other specified; Y92.89 Other specified places as the place of occurrence of the external cause; Y99.8 Other external cause status; Z91.81 History of falling; R27.0 Ataxia, unspecified
CPT/HCPCS: 36415-UA; 70450-TC; 72125-TC; 72170-TC; 80048-TC; 81001-TC; 81003-TC; 85025-TC; 87086-90; 96374; J0696; J2060; Z7610

== ENCOUNTER 2017-06-17 15:32 | Inpatient (IN) | payer MEDICARE ==
--- NOTE | 2017-06-17 15:57 | ED Physician Chart ---
ED Chief Complaint/HPI - Patient Information Date Seen:: 06/17/17 Time Seen:: 15:54 Chief Complaint:: Right hip pain History of Present Illness:: 86 yo female developed right hip pain after a mechanical fall one day ago. She had right hip X ray which showed slightly displaced right femoral neck fracture. She was brought to ER by ambulance. Her right leg was shortened with significant pain in the right hip area. Allergies:: Allergies Allergy/AdvReac Type Severity Reaction Status Date / Time No Known Allergies Allergy Verified 07/30/16 15:41 Vitals:: Vital Signs - 8 hr 06/17/17 15:44 Temp 99.4 F HR 67 RR 16 BP 141/90 O2 Sat % 98 ED Review of Systems - Review of Systems General/Constitutional: No fever, No chills, Weakness Skin: No bruising Head: No headache Eyes: No pain ENT: No nasal drainage Neck: No neck pain Cardio Vascular: No chest pain Pulmonary: No SOB GI: No nausea, No vomiting Musculoskeletal: Bone or joint pain ED Past Medical History - Past Medical History Past Medical History: HTN, CVA/TIA, Dyslipidemia, Dementia, Other (PNA, sepsis, osteoarthritis, high risk of falling ) Social History: Non Smoker, No Alcohol, No Drug Use Psychiatricy History: Other (Anxiety) Family Medical History - Family Member Mother History Unknown: Yes Ethnicity: Living Status: Unknown Hx Family Cancer: (UNKNOWN) Hx Family Coronary Artery Disease: (UNKNOWN) Hx Family Congestive Heart Failure: (UNKNOWN) Hx Family Hypertension: (UNKNOWN) Hx Family Stroke: (UNKNOWN) Hx Family Diabetes: (UNKNOWN) Hx Family Seizures: (UNKNOWN) Hx Family Dementia: (UNKNOWN) Hx Family AIDS: (UNKNOWN) Hx Family COPD: (UNKNOWN) Hx Family Hepatitis: (UNKNOWN) Hx Family Psychiatric Problems: (UNKNOWN) Hx Family Tuberculosis: (UNKNOWN) ED Physical Exam - Physical Examination General/Constitutional: Awake, Alert Other Gen/Cons comments:: follow command, oriented to self only Head: Atraumatic Eyes: PERRL, EOMI Skin: No ecchymosis ENMT: Nasal exam nl Neck: No nuchal rigidity Respiratory: Clear to Auscultation, No Wheeze/Rhonchi/Rales Cardio Vascular: RRR, No murmur, gallop, rubs, NL S1 S2 GI: No tenderness/rebounding/guarding Other Extremities comments:: shortened right leg and tenderness in right hip. Painful ROM Other Neuro/Psych comments:: Confused ED Labs/Radiology/EKG Results - Radiology Results Results: x ray: right femoral neck fracture ED Assessment - Assessment General Assessment: Right femoral fracture Critical Care Time: 30 min Excludes all billable procedures: Yes This condition life threatening/high prob of deterioration: No Assessment/Comments:: Repeat right hip X ray CBC, CMP ED Septic Shock - . Is Septic Shock (SBP<90, OR Lactate>4 mmol\L) present?: No - <6hrs of presentation: Vital Signs: Vital Signs - 8 hr 06/17/17 15:44 Temp 99.4 F HR 67 RR 16 BP 141/90 O2 Sat % 98 ED Reassessment (Disposition) - Reassessment Reassessment Condition:: Unchanged - Patient Disposition Discharge/Transfer:: Acute Care w/in this hosp Admitting Medical Physician:: Spencer Saldivar ED Discharge Plan - Patient Disposition Admit/Discharge/Transfer: Acute Care w/in this hosp Condition at Disposition: Stable
[2017-06-17 16:34] LABS: % BASOPHILS 0.7 % (0.0-2.0); % EOSINOPHILS 2.7 % (0.0-5.0); % LYMPHOCYTES 9.2 % (20.0-50.0); % MONOCYTES 5.2 % (2.0-10.0); % NEUTROPHILS 82.2 % (40.0-80.0); BASOPHILE ABSOLUTE 0.1 Th/cumm (0-0.2); EOSINOPHILE ABSOLUTE 0.2 Th/cmm (0.1-0.4); HEMOGLOBIN 14.2 gm/dL (12-16); LYMPHOCYTE ABSOLUTE 0.8 Th/cmm (1.5-3.0); MEAN CELL VOLUME 89.7 fl (81-100); MEAN CORPUSCULAR HEMOGLOBIN 29.9 pg (27.0-31.0); MEAN CORPUSCULAR HGB CONC 33.3 pg (28.0-36.0); MEAN PLATELET VOLUME 7.2 fl; MONOCYTE ABSOLUTE 0.5 Th/cmm (0.3-1.0); NEUTROPHILE ABSOLUTE 7.5 Th/cmm (1.8-8.0); PLATELET COUNT 254 Th/cmm (150-400); RED BLOOD COUNT 4.75 Mil/cmm (3.80-5.20); RED CELL DISTRIBUTION WIDTH 12.7 % (11.5-20.0); WHITE BLOOD COUNT 9.1 Th/cmm (4.8-10.8)
[2017-06-17 16:36] LABS: HEMATOCRIT 42.6 % (41.0-60)
[2017-06-17 16:51] LABS: ALB/GLOB RATIO 1.3 (1.0-1.8); ALBUMIN 4.1 gm/dL (3.7-5.3); ANION GAP 9.6 (7.0-16.0); BILIRUBIN,TOTAL 0.9 mg/dL (0.3-1.0); BUN - UREA NITROGEN 12 mg/dL (7-25); CALCIUM SERUM 9.6 mg/dL (8.6-10.3); CARBON DIOXIDE 28.1 mEq/L (21.0-31.0); CHLORIDE 102 mEq/L (98-107); CREATININE - SERUM 0.5 mg/dL (0.6-1.2); GLUCOSE 107 mg/dL (70-105); POTASSIUM SERUM 3.7 mEq/L (3.5-5.1); SGOT 21 U/L (13-39); SGPT/ALT 22 U/L (7-52); SODIUM SERUM 136 mEq/L (136-145); TOTAL PROTEIN,SERUM 7.3 gm/dL (6.0-8.3)
[2017-06-17 17:45] LABS: ALKALINE PHOSPHATASE 89 U/L (34-104)
[2017-06-17] MEDS ORDERED: Fleet Enema 135 mL RC PRN (20:37)
[2017-06-17] MEDS ORDERED: Magnesium Hydroxide (MOM) 30 mL UDC PO PRN (20:37)
[2017-06-17] MEDS ORDERED: Acetaminophen 500 MG TAB PO PRN (20:37)
[2017-06-17] MEDS ORDERED: Morphine Sulfate 2 mg/mL 1mL Syr IVP PRN (20:52)
[2017-06-17] MEDS ORDERED: Non-Formulary Item 1 EA (Atorvastatin Calcium [Lipitor] 40 MG) PO SCH (21:00)
[2017-06-18 00:59] VITALS: BP 140/72
[2017-06-18 06:33] LABS: % BASOPHILS 0.2 % (0.0-2.0); % EOSINOPHILS 4.2 % (0.0-5.0); % LYMPHOCYTES 11.7 % (20.0-50.0); % MONOCYTES 6.1 % (2.0-10.0); % NEUTROPHILS 77.8 % (40.0-80.0); EOSINOPHILE ABSOLUTE 0.3 Th/cmm (0.1-0.4); HEMATOCRIT 41.2 % (41.0-60); HEMOGLOBIN 13.9 gm/dL (12-16); LYMPHOCYTE ABSOLUTE 0.9 Th/cmm (1.5-3.0); MEAN CELL VOLUME 90.5 fl (81-100); MEAN CORPUSCULAR HEMOGLOBIN 30.4 pg (27.0-31.0); MEAN CORPUSCULAR HGB CONC 33.6 pg (28.0-36.0); MEAN PLATELET VOLUME 7.6 fl; MONOCYTE ABSOLUTE 0.5 Th/cmm (0.3-1.0); NEUTROPHILE ABSOLUTE 6.3 Th/cmm (1.8-8.0); PLATELET COUNT 247 Th/cmm (150-400); RED BLOOD COUNT 4.56 Mil/cmm (3.80-5.20); RED CELL DISTRIBUTION WIDTH 12.9 % (11.5-20.0)
[2017-06-18 06:59] LABS: ANION GAP 12.6 (7.0-16.0); BUN - UREA NITROGEN 11 mg/dL (7-25); CALCIUM SERUM 9.3 mg/dL (8.6-10.3); CARBON DIOXIDE 27.1 mEq/L (21.0-31.0); CHLORIDE 102 mEq/L (98-107); CHOLESTEROL 121 mg/dL (<200); CREATININE - SERUM 0.5 mg/dL (0.6-1.2); GLUCOSE 102 mg/dL (70-105); HDL -HIGH DENSITY LIPOPROTEIN 64 mg/dL (23-92); POTASSIUM SERUM 3.7 mEq/L (3.5-5.1); SODIUM SERUM 138 mEq/L (136-145); TRIGLYCERIDES 75 mg/dL (<150)
[2017-06-18] MEDS: Aspirin 81mg Chewable Tab PO SCH (09:32)
--- NOTE | 2017-06-18 10:02 | Diagnostic Imaging Report ---
Exam: Right hip joint. HISTORY: Status post fall pain Multiple views of right hip joint portably at 1809 hours was reviewed. The study demonstrates minimally displaced subcapital fracture of the right femoral neck. Superimposed osteopenia is noted. The head of right femur is well within the acetabular fossa. The visualized pelvis is intact. IMPRESSION : minimally displaced subcapital fracture of the right femur, superimposed osteopenia.
--- NOTE | 2017-06-18 23:40 | History & Physical ---
ADMIT DATE: 06/18/2017 CHIEF COMPLAINT: Right hip pain and right knee pain, status post fall. HISTORY OF PRESENT ILLNESS: This is an 86-year-old female, who was admitted from a correction facility through the Emergency Room with a complaint of right hip pain, right knee pain, status post fall. REVIEW OF SYSTEMS: GENERAL: This is an 86-year-old female that appears as stated. No chills. No fever. HEENT: No dizziness. No headache. EYES: No eye pain, no blurring of vision. NECK: No neck pain. No nuchal rigidity. CARDIOVASCULAR: No chest pain, no palpitation. RESPIRATORY: No coughing. No shortness of breath. GASTROINTESTINAL: No diarrhea, no abdominal pain. MUSCULOSKELETAL: Right hip pain, right knee pain. SOCIAL HISTORY: Includes the patient lives in a correction facility prior to hospitalization. SURGICAL HISTORY: Unremarkable. FAMILY HISTORY: Unremarkable. PAST MEDICAL HISTORY: Includes dementia, vitamin D deficiency, hyperlipidemia, hypertension, osteoarthritis. PHYSICAL EXAMINATION: VITAL SIGNS: Temperature 98, heart rate of 90, blood pressure 109/68, respirations of 18, 97% on room air. HEENT: Head is atraumatic, normocephalic. Eyes, bilateral conjunctivae are clear. Bilateral pupils equally round and reactive. NECK: Supple. No JVD. CARDIOVASCULAR: S1 and S2 without murmur. PULMONARY: Clear to auscultation. GASTROINTESTINAL: Soft and nontender without guarding. Positive bowel sounds. MUSCULOSKELETAL: No clubbing, no cyanosis noted. ASSESSMENT: 1. Subcapital fracture of the right femur. 2. Osteopenia. 3. Status post fall. 4. Dementia. 5. Hypertension. 6. Hyperlipidemia. 7. Osteoarthritis. 8. Vitamin D deficiency. PLAN: We will admit the patient to inpatient Med/Surg Unit. We will consult with orthopedic doctor. We will do pain management as needed. Treatment plans were discussed with the patient's nurse. Treatment plans were discussed with Dr. Saldivar. We will also do medication reconciliation as indicated. JOB# [id number]
--- NOTE | 2017-06-19 01:33 | Consultation ---
DATE OF CONSULTATION: 06/18/2017 ORTHOPEDIC SURGERY CONSULTATION HISTORY OF PRESENT ILLNESS: The patient is an 86-year-old lady admitted to [facility] on 06/17/2017 because of a right hip fracture. I can get no information from the patient whatsoever. Some of the papers that accompanied her states she is from [facility] in [place]. She had a slip and fall on 06/16/2017. X-rays were taken that showed a fracture of the right hip and she was transferred to [facility]. Diagnoses of dementia and hypertension were also mentioned. Past history, family history, social history, and review of systems -- all unavailable. PHYSICAL EXAMINATION: GENERAL: The patient was examined in her hospital room at [facility]. She is conscious and alert, but totally disoriented and rambling about her baby, etc. -- not able to communicate any valid information. HEENT: Head, normocephalic, atraumatic. EXTREMITIES: Upper extremities unremarkable with good function and range of motion. Lower extremities, right lower extremity is shortened and externally rotated. There is pain with any attempt at movement of the right hip. Left lower extremity, unremarkable. DIAGNOSTIC DATA: X-rays, I reviewed the images in the PACS, hips and pelvis, there is a femoral neck fracture on the right, which is displaced. ORTHOPEDIC DIAGNOSIS: Fracture, right femoral neck, closed, displaced. RECOMMENDATIONS: The patient can have medical optimization and clearance, then should be afforded surgery -- hemiarthroplasty, right hip. Thank you for this interesting referral. JOB# [id number]
[2017-06-19] MEDS: Aspirin 81mg Chewable Tab PO SCH (08:54)
--- NOTE | 2017-06-19 09:17 | General Progress Note ---
Subjective - Review of Systems Events since last encounter: patient admitted for rt hip pain Objective - Results Result Diagrams: 06/18/17 06:00 06/18/17 06:00 Recent Labs: Laboratory Last Values WBC 8.0 Th/cmm (4.8-10.8) 06/18/17 06:00 RBC 4.56 Mil/cmm (3.80-5.20) 06/18/17 06:00 Hgb 13.9 gm/dL (12-16) 06/18/17 06:00 Hct 41.2 % (41.0-60) 06/18/17 06:00 MCV 90.5 fl (81-100) 06/18/17 06:00 MCH 30.4 pg (27.0-31.0) 06/18/17 06:00 MCHC Differential 33.6 pg (28.0-36.0) 06/18/17 06:00 RDW 12.9 % (11.5-20.0) 06/18/17 06:00 Plt Count 247 Th/cmm (150-400) 06/18/17 06:00 MPV 7.6 fl 06/18/17 06:00 Neutrophils % 77.8 % (40.0-80.0) 06/18/17 06:00 Lymphocytes % 11.7 % (20.0-50.0) L 06/18/17 06:00 Monocytes % 6.1 % (2.0-10.0) 06/18/17 06:00 Eosinophils % 4.2 % (0.0-5.0) 06/18/17 06:00 Basophils % 0.2 % (0.0-2.0) 06/18/17 06:00 Sodium 138 mEq/L (136-145) 06/18/17 06:00 Potassium 3.7 mEq/L (3.5-5.1) 06/18/17 06:00 Chloride 102 mEq/L (98-107) 06/18/17 06:00 Carbon Dioxide 27.1 mEq/L (21.0-31.0) 06/18/17 06:00 Anion Gap 12.6 (7.0-16.0) 06/18/17 06:00 BUN 11 mg/dL (7-25) 06/18/17 06:00 Creatinine 0.5 mg/dL (0.6-1.2) L 06/18/17 06:00 Est GFR ( Amer) TNP 06/18/17 06:00 Est GFR (Non-Af Amer) TNP 06/18/17 06:00 BUN/Creatinine Ratio 22.0 06/18/17 06:00 Glucose 102 mg/dL (70-105) 06/18/17 06:00 Calcium 9.3 mg/dL (8.6-10.3) 06/18/17 06:00 Total Bilirubin 0.9 mg/dL (0.3-1.0) 06/17/17 16:26 AST 21 U/L (13-39) 06/17/17 16:26 ALT 22 U/L (7-52) 06/17/17 16:26 Alkaline Phosphatase 89 U/L (34-104) 06/17/17 16:26 Total Protein 7.3 gm/dL (6.0-8.3) 06/17/17 16:26 Albumin 4.1 gm/dL (3.7-5.3) 06/17/17 16:26 Globulin 3.2 gm/dL 06/17/17 16:26 Albumin/Globulin Ratio 1.3 (1.0-1.8) 06/17/17 16:26 Triglycerides 75 mg/dL (<150) 06/18/17 06:00 Cholesterol 121 mg/dL (<200) 06/18/17 06:00 LDL Cholesterol Direct 48 mg/dL (75-193) L 06/18/17 06:00 HDL Cholesterol 64 mg/dL (23-92) 06/18/17 06:00 TSH 7.08 uIU/ml (0.34-5.60) H 06/18/17 06:00 - Physical Exam Vitals and I&O: Vital Signs Temp 97.4 F 06/19/17 04:00 Pulse 66 06/19/17 08:54 Resp 18 06/19/17 04:00 BP 112/60 06/19/17 08:54 Pulse Ox 98 06/19/17 04:00 Intake & Output 06/18/17 06/19/17 06/19/17 18:59 06:59 18:59 Intake Total 1020 60 Balance 1020 60 Weight (lbs) 49.442 kg 51.256 kg Intake: Oral 1020 60 Other: # Voids 3 3 # Bowel Movements 0 Active Medications: Current Medications Acetaminophen (Tylenol) 650 mg PO Q4HR PRN PRN Reason: Pain or Fever >101 Stop: 08/16/17 20:36 Acetaminophen (Tylenol Extra Strength) 1,000 mg PO Q4HR PRN PRN Reason: MOD PAIN Stop: 08/16/17 20:36 Last Admin: 06/19/17 08:54 Dose: 1,000 mg Amlodipine Besylate (Norvasc) 10 mg PO DAILY AKIKO Stop: 08/17/17 08:59 Last Admin: 06/19/17 08:54 Dose: 10 mg Aspirin (Aspirin Chewable) 81 mg PO DAILY AKIKO Stop: 08/17/17 08:59 Last Admin: 06/19/17 08:54 Dose: 81 mg Atorvastatin Calcium (Lipitor) 40 mg PO HS [facility] Stop: 08/17/17 20:59 Last Admin: 06/18/17 20:43 Dose: 40 mg Bisacodyl (Dulcolax 10 Mg Supp) 10 mg RC DAILY PRN PRN Reason: Constipation Stop: 08/16/17 20:36 Cholecalciferol (Vitamin D3) 1,000 iu PO DAILY AKIKO Stop: 08/17/17 08:59 Last Admin: 06/19/17 08:54 Dose: 1,000 iu Docusate Sodium (Colace) 100 mg PO BID AKIKO Stop: 08/17/17 08:59 Last Admin: 06/19/17 08:54 Dose: 100 mg Donepezil HCl (Aricept) 10 mg PO DAILY AKIKO Stop: 08/17/17 08:59 Last Admin: 06/19/17 08:54 Dose: 10 mg Magnesium Hydroxide (Milk Of Magnesia) 30 ml PO HS PRN PRN Reason: Constipation Stop: 08/16/17 20:36 Memantine (Namenda) 10 mg PO HS AKIKO Stop: 08/16/17 20:59 Last Admin: 06/18/17 20:43 Dose: 10 mg Morphine Sulfate (Morphine) 2 mg IVP Q6HR PRN PRN Reason: Severe Pain Stop: 08/16/17 20:51 Last Admin: 06/17/17 21:48 Dose: 2 mg Ondansetron HCl (Zofran) 4 mg IV Q6HR PRN PRN Reason: Vomiting Stop: 08/16/17 20:51 Sodium Phosphate (Fleet Enema) 135 ml RC Q48H PRN PRN Reason: IF DULCOLAX INEFFECTIVE Stop: 08/16/17 20:36 General: No acute distress HEENT: Atraumatic Neck: Supple Cardiovascular: Regular rate, Normal S1, Normal S2 Assessment/Plan - Problem List Patient Problems: All Active Problems Fracture (healed) treatment follow-up (Acute) Z09 [place] WITH LEFT FRONTAL ECCYMOS (Acute) - Plan Plan: cpm
[2017-06-20 05:34] LABS: URINE MICROSCOPIC INDICATED? YES; URINE SOURCE RANDOM
[2017-06-20 05:36] LABS: URINE BILIRUBIN SMALL (NEGATIVE); URINE BLOOD NEGATIVE (NEGATIVE); URINE GLUCOSE (UA) NEGATIVE (NEGATIVE); URINE KETONE 15 mg/dL (NEGATIVE); URINE LEUKOCYTE ESTERASE NEGATIVE (NEGATIVE); URINE NITRATE NEGATIVE (NEGATIVE); URINE PROTEIN TRACE mg/dL (NEGATIVE)
[2017-06-20 05:47] LABS: URINE CLARITY CLEAR (CLEAR); URINE COLOR ORANGE
[2017-06-20 05:49] LABS: URINE BACTERIA FEW /hpf (NONE SEEN); URINE EPITHELIAL CELLS MODERATE /lpf (FEW); URINE RBC 0-2 /hpf (0-5)
[2017-06-20] MEDS: Aspirin 81mg Chewable Tab PO SCH (09:12)
--- NOTE | 2017-06-20 10:49 | General Progress Note ---
Subjective - Review of Systems Events since last encounter: rt hip pain in no acute distress Objective - Results Result Diagrams: 06/18/17 06:00 06/18/17 06:00 Recent Labs: Laboratory Last Values WBC 8.0 Th/cmm (4.8-10.8) 06/18/17 06:00 RBC 4.56 Mil/cmm (3.80-5.20) 06/18/17 06:00 Hgb 13.9 gm/dL (12-16) 06/18/17 06:00 Hct 41.2 % (41.0-60) 06/18/17 06:00 MCV 90.5 fl (81-100) 06/18/17 06:00 MCH 30.4 pg (27.0-31.0) 06/18/17 06:00 MCHC Differential 33.6 pg (28.0-36.0) 06/18/17 06:00 RDW 12.9 % (11.5-20.0) 06/18/17 06:00 Plt Count 247 Th/cmm (150-400) 06/18/17 06:00 MPV 7.6 fl 06/18/17 06:00 Neutrophils % 77.8 % (40.0-80.0) 06/18/17 06:00 Lymphocytes % 11.7 % (20.0-50.0) L 06/18/17 06:00 Monocytes % 6.1 % (2.0-10.0) 06/18/17 06:00 Eosinophils % 4.2 % (0.0-5.0) 06/18/17 06:00 Basophils % 0.2 % (0.0-2.0) 06/18/17 06:00 Sodium 138 mEq/L (136-145) 06/18/17 06:00 Potassium 3.7 mEq/L (3.5-5.1) 06/18/17 06:00 Chloride 102 mEq/L (98-107) 06/18/17 06:00 Carbon Dioxide 27.1 mEq/L (21.0-31.0) 06/18/17 06:00 Anion Gap 12.6 (7.0-16.0) 06/18/17 06:00 BUN 11 mg/dL (7-25) 06/18/17 06:00 Creatinine 0.5 mg/dL (0.6-1.2) L 06/18/17 06:00 Est GFR ( Amer) TNP 06/18/17 06:00 Est GFR (Non-Af Amer) TNP 06/18/17 06:00 BUN/Creatinine Ratio 22.0 06/18/17 06:00 Glucose 102 mg/dL (70-105) 06/18/17 06:00 Calcium 9.3 mg/dL (8.6-10.3) 06/18/17 06:00 Total Bilirubin 0.9 mg/dL (0.3-1.0) 06/17/17 16:26 AST 21 U/L (13-39) 06/17/17 16:26 ALT 22 U/L (7-52) 06/17/17 16:26 Alkaline Phosphatase 89 U/L (34-104) 06/17/17 16:26 Total Protein 7.3 gm/dL (6.0-8.3) 06/17/17 16:26 Albumin 4.1 gm/dL (3.7-5.3) 06/17/17 16:26 Globulin 3.2 gm/dL 06/17/17 16:26 Albumin/Globulin Ratio 1.3 (1.0-1.8) 06/17/17 16:26 Triglycerides 75 mg/dL (<150) 06/18/17 06:00 Cholesterol 121 mg/dL (<200) 06/18/17 06:00 LDL Cholesterol Direct 48 mg/dL (75-193) L 06/18/17 06:00 HDL Cholesterol 64 mg/dL (23-92) 06/18/17 06:00 TSH 7.08 uIU/ml (0.34-5.60) H 06/18/17 06:00 Urine Source RANDOM 06/20/17 04:20 Urine Color ORANGE 06/20/17 04:20 Urine Clarity CLEAR (CLEAR) 06/20/17 04:20 Urine pH 6.0 (4.6 - 8.0) 06/20/17 04:20 Ur Specific [place] >= 1.030 (1.005-1.030) 06/20/17 04:20 Urine Protein TRACE mg/dL (NEGATIVE) 06/20/17 04:20 Urine Glucose (UA) NEGATIVE mg/dL (NEGATIVE) 06/20/17 04:20 Urine Ketones 15 mg/dL (NEGATIVE) H 06/20/17 04:20 Urine Blood NEGATIVE (NEGATIVE) 06/20/17 04:20 Urine Nitrate NEGATIVE (NEGATIVE) 06/20/17 04:20 Urine Bilirubin SMALL (NEGATIVE) H 06/20/17 04:20 Urine Urobilinogen 2.0 E.U./dL (0.2 - 1.0) 06/20/17 04:20 Ur Leukocyte Esterase NEGATIVE (NEGATIVE) 06/20/17 04:20 Urine RBC 0-2 /hpf (0-5) 06/20/17 04:20 Urine WBC 2-5 /hpf (0-5) 06/20/17 04:20 Ur Epithelial Cells MODERATE /lpf (FEW) 06/20/17 04:20 Urine Bacteria FEW /hpf (NONE SEEN) 06/20/17 04:20 Urine Mucus MODERATE /lpf (FEW) 06/20/17 04:20 - Physical Exam Vitals and I&O: Vital Signs Temp 98.2 F 06/20/17 08:00 Pulse 72 06/20/17 09:13 Resp 19 06/20/17 08:00 BP 104/64 06/20/17 09:13 Pulse Ox 97 06/20/17 08:00 Intake & Output 06/19/17 06/20/17 06/20/17 18:59 06:59 18:59 Intake Total 800 50 100 Balance 800 50 100 Weight (lbs) 51.256 kg 51.313 kg 51.313 kg Intake: Oral 800 50 100 Other: # Voids 2 2 # Bowel Movements 0 0 Active Medications: Current Medications Acetaminophen (Tylenol) 650 mg PO Q4HR PRN PRN Reason: Pain or Fever >101 Stop: 08/16/17 20:36 Acetaminophen (Tylenol Extra Strength) 1,000 mg PO Q4HR PRN PRN Reason: MOD PAIN Stop: 08/16/17 20:36 Last Admin: 06/19/17 08:54 Dose: 1,000 mg Amlodipine Besylate (Norvasc) 10 mg PO DAILY AKIKO Stop: 08/17/17 08:59 Last Admin: 06/20/17 09:13 Dose: Not Given Aspirin (Aspirin Chewable) 81 mg PO DAILY AKIKO Stop: 08/17/17 08:59 Last Admin: 06/20/17 09:12 Dose: 81 mg Atorvastatin Calcium (Lipitor) 40 mg PO HS [facility] Stop: 08/17/17 20:59 Last Admin: 06/19/17 20:54 Dose: 40 mg Bisacodyl (Dulcolax 10 Mg Supp) 10 mg RC DAILY PRN PRN Reason: Constipation Stop: 08/16/17 20:36 Cholecalciferol (Vitamin D3) 1,000 iu PO DAILY [facility] Stop: 08/17/17 08:59 Last Admin: 06/20/17 09:12 Dose: 1,000 iu Docusate Sodium (Colace) 100 mg PO BID [facility] Stop: 08/17/17 08:59 Last Admin: 06/20/17 09:12 Dose: 100 mg Donepezil HCl (Aricept) 10 mg PO DAILY [facility] Stop: 08/17/17 08:59 Last Admin: 06/20/17 09:12 Dose: 10 mg Magnesium Hydroxide (Milk Of Magnesia) 30 ml PO HS PRN PRN Reason: Constipation Stop: 08/16/17 20:36 Memantine (Namenda) 10 mg PO HS [facility] Stop: 08/16/17 20:59 Last Admin: 06/19/17 20:54 Dose: 10 mg Morphine Sulfate (Morphine) 2 mg IVP Q6HR PRN PRN Reason: Severe Pain Stop: 08/16/17 20:51 Last Admin: 06/17/17 21:48 Dose: 2 mg Ondansetron HCl (Zofran) 4 mg IV Q6HR PRN PRN Reason: Vomiting Stop: 08/16/17 20:51 Sodium Phosphate (Fleet Enema) 135 ml RC Q48H PRN PRN Reason: IF DULCOLAX INEFFECTIVE Stop: 08/16/17 20:36 General: No acute distress HEENT: Atraumatic Neck: Supple Cardiovascular: Regular rate, Normal S1, Normal S2 Assessment/Plan - Problem List Patient Problems: All Active Problems Fracture (healed) treatment follow-up (Acute) Z09 [place] WITH LEFT FRONTAL ECCYMOS (Acute) - Plan Plan: cpm
[2017-06-20] MEDS ORDERED: D5-0.45NS 1,000 ML IV SCH (17:30)
[2017-06-20] MEDS: Levothyroxine 0.025 Mg Tab PO SCH (17:38)
--- NOTE | 2017-06-20 21:42 | Consultation ---
DATE OF CONSULTATION: 06/20/2017 PATIENT OF: Dr. Saldivar. HISTORY AND PHYSICAL: This is an 86-year-old female patient, who had a fall at the senior care facility. The patient came to the Emergency Room with right hip fracture. Cardiac clearance is requested. PAST MEDICAL HISTORY: Hypertension, osteoporosis, dementia, vitamin D deficiency, hyperlipidemia, hypothyroid. FAMILY HISTORY: Unremarkable. SOCIAL HISTORY: No history of smoking, alcohol abuse. ALLERGIES: No known allergies. PHYSICAL EXAMINATION: VITAL SIGNS: Blood pressure 130/80, pulse 78, respirations 28. HEAD: Normocephalic. No lumps or bumps. EYES: Pupils equal and reactive to light. Fundi show AV nicking, sclerae white, conjunctivae pink. NECK: Carotid 2+. Normal upstroke. JVD flat. Thyroid not palpable. Lymph nodes not palpable. CHEST: Shows increased AP diameter. No kyphosis, scoliosis. LUNGS: Bilateral bronchovesicular breath sounds. HEART: space with lateral to midclavicular line. S1, S2. No S3, S4. Soft systolic murmur. ABDOMEN: Soft. Liver, spleen not palpable. No organomegaly. Bowel sounds active. NEUROLOGIC: Unremarkable. EXTREMITIES: Peripheral pulses 2+. No pedal edema. CLINICAL IMPRESSION: Right hip fracture, hypertension, dementia, vitamin D deficiency, hyperlipidemia, hypothyroid. The patient is clear for surgery. JOB# [id number]
[2017-06-21 06:13] LABS: % BASOPHILS 1.3 % (0.0-2.0); % EOSINOPHILS 5.4 % (0.0-5.0); % LYMPHOCYTES 10.7 % (20.0-50.0); % MONOCYTES 6.8 % (2.0-10.0); % NEUTROPHILS 75.8 % (40.0-80.0); BASOPHILE ABSOLUTE 0.1 Th/cumm (0-0.2); EOSINOPHILE ABSOLUTE 0.4 Th/cmm (0.1-0.4); LYMPHOCYTE ABSOLUTE 0.7 Th/cmm (1.5-3.0); MEAN CELL VOLUME 90.9 fl (81-100); MEAN CORPUSCULAR HEMOGLOBIN 30.2 pg (27.0-31.0); MEAN CORPUSCULAR HGB CONC 33.2 pg (28.0-36.0); MEAN PLATELET VOLUME 7.1 fl; MONOCYTE ABSOLUTE 0.5 Th/cmm (0.3-1.0); NEUTROPHILE ABSOLUTE 5.1 Th/cmm (1.8-8.0); PLATELET COUNT 288 Th/cmm (150-400); RED BLOOD COUNT 4.29 Mil/cmm (3.80-5.20); RED CELL DISTRIBUTION WIDTH 12.3 % (11.5-20.0); WHITE BLOOD COUNT 6.8 Th/cmm (4.8-10.8)
[2017-06-21 06:23] LABS: INR 0.99 (0.5-1.4); PROTHROMBIN TIME (TEST) 10.3 SECONDS (9.5-11.5)
[2017-06-21 06:31] LABS: ANION GAP 11.1 (7.0-16.0); BUN - UREA NITROGEN 17 mg/dL (7-25); CALCIUM SERUM 8.8 mg/dL (8.6-10.3); CARBON DIOXIDE 26.3 mEq/L (21.0-31.0); CHLORIDE 101 mEq/L (98-107); CREATININE - SERUM 0.4 mg/dL (0.6-1.2); GLUCOSE 98 mg/dL (70-105); POTASSIUM SERUM 3.4 mEq/L (3.5-5.1); SODIUM SERUM 135 mEq/L (136-145)
[2017-06-21] MEDS: Levothyroxine 0.025 Mg Tab PO SCH (08:08)
[2017-06-21] MEDS: Aspirin 81mg Chewable Tab PO SCH (08:10)
[2017-06-21] MEDS ORDERED: fentaNYL Citrate 100 mcg/2mL Vial ONE ×2 (08:27→08:28)
[2017-06-21] MEDS ORDERED: Neostigmine 10mg/10mL Vial ONE (08:42)
[2017-06-21] MEDS ORDERED: Meperidine 25 mg/mL 1mL Syr IVP PRN (09:43)
[2017-06-21] MEDS ORDERED: Bupivacaine 0.25% 10 mL Vial ONE ×2 (10:32)
[2017-06-21] MEDS ORDERED: Magnesium Hydroxide (MOM) 30 mL UDC PO PRN (10:53)
--- NOTE | 2017-06-21 12:09 | Diagnostic Imaging Report ---
Pelvis single view Indication: Pain, postoperative, status post right hip arthroplasty Comparison: Pelvis x-ray on 06/17/2017 demonstrating right femoral neck fracture Findings: Bipolar right hip hemiarthroplasty seen with associated postsurgical changes with few pockets of gas. Alignment is anatomic based on this single limited view. Osteopenia is noted. Impression: Status post bipolar right hip hemiarthroplasty.
--- NOTE | 2017-06-21 12:19 | Internal Medicine Prog Note ---
Internal Medicine Subjective - Subjective Service Date: 06/21/17 Patient seen and examined:: with staff Patient is:: awake, confused Per staff patient has:: tolerating meds Internal Medicine Objective - Results Result Diagrams: 06/21/17 05:20 06/21/17 05:20 Recent Labs: Laboratory Last Values WBC 6.8 Th/cmm (4.8-10.8) 06/21/17 05:20 RBC 4.29 Mil/cmm (3.80-5.20) 06/21/17 05:20 Hgb 13.0 gm/dL (12-16) 06/21/17 05:20 Hct 39.0 % (41.0-60) L 06/21/17 05:20 MCV 90.9 fl (81-100) 06/21/17 05:20 MCH 30.2 pg (27.0-31.0) 06/21/17 05:20 MCHC Differential 33.2 pg (28.0-36.0) 06/21/17 05:20 RDW 12.3 % (11.5-20.0) 06/21/17 05:20 Plt Count 288 Th/cmm (150-400) 06/21/17 05:20 MPV 7.1 fl 06/21/17 05:20 Neutrophils % 75.8 % (40.0-80.0) 06/21/17 05:20 Lymphocytes % 10.7 % (20.0-50.0) L 06/21/17 05:20 Monocytes % 6.8 % (2.0-10.0) 06/21/17 05:20 Eosinophils % 5.4 % (0.0-5.0) H 06/21/17 05:20 Basophils % 1.3 % (0.0-2.0) 06/21/17 05:20 PT 10.3 SECONDS (9.5-11.5) 06/21/17 05:20 INR 0.99 (0.5-1.4) 06/21/17 05:20 PTT (Actin FS) 26.5 SECONDS (26.0-38.0) 06/21/17 05:20 Sodium 135 mEq/L (136-145) L 06/21/17 05:20 Potassium 3.4 mEq/L (3.5-5.1) L 06/21/17 05:20 Chloride 101 mEq/L (98-107) 06/21/17 05:20 Carbon Dioxide 26.3 mEq/L (21.0-31.0) 06/21/17 05:20 Anion Gap 11.1 (7.0-16.0) 06/21/17 05:20 BUN 17 mg/dL (7-25) 06/21/17 05:20 Creatinine 0.4 mg/dL (0.6-1.2) L 06/21/17 05:20 Est GFR ( Amer) TNP 06/21/17 05:20 Est GFR (Non-Af Amer) TNP 06/21/17 05:20 BUN/Creatinine Ratio 42.5 06/21/17 05:20 Glucose 98 mg/dL (70-105) 06/21/17 05:20 Calcium 8.8 mg/dL (8.6-10.3) 06/21/17 05:20 Total Bilirubin 0.9 mg/dL (0.3-1.0) 06/17/17 16:26 AST 21 U/L (13-39) 06/17/17 16:26 ALT 22 U/L (7-52) 06/17/17 16:26 Alkaline Phosphatase 89 U/L (34-104) 06/17/17 16:26 Total Protein 7.3 gm/dL (6.0-8.3) 06/17/17 16:26 Albumin 4.1 gm/dL (3.7-5.3) 06/17/17 16:26 Globulin 3.2 gm/dL 06/17/17 16:26 Albumin/Globulin Ratio 1.3 (1.0-1.8) 06/17/17 16:26 Triglycerides 75 mg/dL (<150) 06/18/17 06:00 Cholesterol 121 mg/dL (<200) 06/18/17 06:00 LDL Cholesterol Direct 48 mg/dL (75-193) L 06/18/17 06:00 HDL Cholesterol 64 mg/dL (23-92) 06/18/17 06:00 TSH 7.08 uIU/ml (0.34-5.60) H 06/18/17 06:00 Urine Source RANDOM 06/20/17 04:20 Urine Color ORANGE 06/20/17 04:20 Urine Clarity CLEAR (CLEAR) 06/20/17 04:20 Urine pH 6.0 (4.6 - 8.0) 06/20/17 04:20 Ur Specific [place] >= 1.030 (1.005-1.030) 06/20/17 04:20 Urine Protein TRACE mg/dL (NEGATIVE) 06/20/17 04:20 Urine Glucose (UA) NEGATIVE mg/dL (NEGATIVE) 06/20/17 04:20 Urine Ketones 15 mg/dL (NEGATIVE) H 06/20/17 04:20 Urine Blood NEGATIVE (NEGATIVE) 06/20/17 04:20 Urine Nitrate NEGATIVE (NEGATIVE) 06/20/17 04:20 Urine Bilirubin SMALL (NEGATIVE) H 06/20/17 04:20 Urine Urobilinogen 2.0 E.U./dL (0.2 - 1.0) 06/20/17 04:20 Ur Leukocyte Esterase NEGATIVE (NEGATIVE) 06/20/17 04:20 Urine RBC 0-2 /hpf (0-5) 06/20/17 04:20 Urine WBC 2-5 /hpf (0-5) 06/20/17 04:20 Ur Epithelial Cells MODERATE /lpf (FEW) 06/20/17 04:20 Urine Bacteria FEW /hpf (NONE SEEN) 06/20/17 04:20 Urine Mucus MODERATE /lpf (FEW) 06/20/17 04:20 - Physical Exam Vitals and I&O: Vital Signs Temp 98.3 F 06/21/17 07:55 Pulse 68 06/21/17 08:08 Resp 17 06/21/17 07:55 BP 113/68 06/21/17 08:08 Pulse Ox 95 06/21/17 07:55 Intake & Output 06/20/17 06/21/17 06/21/17 18:59 06:59 18:59 Intake Total 100 550 Balance 100 550 Weight (lbs) 113 lb 2 oz 113 lb 2 oz Intake: Oral 100 550 Other: # Voids 1 # Bowel Movements 0 Active Medications: Current Medications Acetaminophen (Tylenol) 650 mg PO Q4HR PRN PRN Reason: Pain or Fever >101 Stop: 08/16/17 20:36 Acetaminophen (Tylenol Extra Strength) 1,000 mg PO Q4HR PRN PRN Reason: MOD PAIN Stop: 08/16/17 20:36 Last Admin: 06/19/17 08:54 Dose: 1,000 mg Amlodipine Besylate (Norvasc) 10 mg PO DAILY AKIKO Stop: 08/17/17 08:59 Last Admin: 06/21/17 08:08 Dose: Not Given Aspirin (Aspirin Chewable) 81 mg PO DAILY [facility]KO Stop: 08/17/17 08:59 Last Admin: 06/21/17 08:10 Dose: Not Given Aspirin (Ecotrin) 325 mg PO Q12HR AKIKO Stop: 08/21/17 08:59 Atorvastatin Calcium (Lipitor) 40 mg PO HS [facility]KO Stop: 08/17/17 20:59 Last Admin: 06/20/17 20:28 Dose: 40 mg Bisacodyl (Dulcolax 10 Mg Supp) 10 mg RC DAILY PRN PRN Reason: Constipation Stop: 08/16/17 20:36 Cholecalciferol (Vitamin D3) 1,000 iu PO DAILY AKIKO Stop: 08/17/17 08:59 Last Admin: 06/21/17 08:12 Dose: Not Given Docusate Sodium (Colace) 100 mg PO BID [facility]KO Stop: 08/17/17 08:59 Last Admin: 06/21/17 08:13 Dose: Not Given Docusate Sodium (Colace) 100 mg PO DAILY PRN PRN Reason: Constipation Stop: 08/20/17 10:52 Donepezil HCl (Aricept) 10 mg PO DAILY AKIKO Stop: 08/17/17 08:59 Last Admin: 06/21/17 08:13 Dose: Not Given Dextrose/Sodium Chloride (D5-0.45ns) 1,000 mls @ 50 mls/hr IV .Q20H AKIKO Stop: 08/19/17 17:29 Last Admin: 06/20/17 17:39 Dose: 50 mls/hr Cefazolin Sodium 2 gm/ (Dextrose) 100 mls @ 100 mls/hr IV Q12H AKIKO Stop: 08/20/17 07:59 Last Admin: 06/21/17 08:12 Dose: 100 mls/hr Cefazolin Sodium 1 gm/ (Dextrose) 50 mls @ 100 mls/hr IV Q8H AKIKO Stop: 06/22/17 00:59 Levothyroxine Sodium (Synthroid) 0.025 mg PO QDAC AKIKO Stop: 08/19/17 16:17 Last Admin: 06/21/17 08:08 Dose: Not Given Magnesium Hydroxide (Milk Of Magnesia) 30 ml PO HS PRN PRN Reason: Constipation Stop: 08/16/17 20:36 Magnesium Hydroxide (Milk Of Magnesia) 30 ml PO HS PRN PRN Reason: Constipation Stop: 08/20/17 10:52 Memantine (Namenda) 10 mg PO HS AKIKO Stop: 08/16/17 20:59 Last Admin: 06/20/17 20:28 Dose: 10 mg Meperidine HCl (Demerol) 25 mg IVP UD PRN PRN Reason: POST OP SEVERE PAIN Stop: 06/22/17 09:42 Morphine Sulfate (Morphine) 2 mg IVP Q6HR PRN PRN Reason: Severe Pain Stop: 08/16/17 20:51 Last Admin: 06/17/17 21:48 Dose: 2 mg Multivitamins/Vitamin C (Theragran) 1 tab PO DAILY AKIKO Stop: 08/21/17 08:59 Ondansetron HCl (Zofran) 4 mg IV Q6HR PRN PRN Reason: Vomiting Stop: 08/16/17 20:51 Ondansetron HCl (Zofran) 4 mg IVP Q4H PRN PRN Reason: Nausea / Vomiting Stop: 08/20/17 10:52 Sodium Phosphate (Fleet Enema) 135 ml RC Q48H PRN PRN Reason: IF DULCOLAX INEFFECTIVE Stop: 08/16/17 20:36 General: alert HEENT: NC/AT, PERRLA Neck: Supple Lungs: CTAB Cardiovascular: RRR, Normal S1, Normal S2 Abdomen: soft, non-tender, non-distended, positive bowel sound Internal Medicine Assmt/Plan - Assessment Assessment: Fracture (healed) treatment follow-up (Acute) Z09 [place] WITH LEFT FRONTAL ECCYMOS (Acute) s/p right hemiarthroplasty - Plan Plan: pain mgmt ivf for hydrations continue current plan of care
[2017-06-21] MEDS ORDERED: Potassium Chloride 20 mEq ER Tab PO ONE (12:20)
[2017-06-21] MEDS ORDERED: D5-0.45NS 1,000 ML IV SCH (13:15)
[2017-06-21] MEDS ORDERED: Sodium Chloride 0.9% 1,000 ML IV ONE (17:22)
[2017-06-21] MEDS: Sodium Chloride 0.9% 1,000 ML IV SCH (20:43)
[2017-06-22] MEDS: Sodium Chloride 0.9% 1,000 ML IV SCH ×3 (03:25→17:26)
--- NOTE | 2017-06-22 04:45 | Operative Report ---
DATE OF SURGERY: 06/21/2017 PREOPERATIVE DIAGNOSIS: Femoral neck fracture, right hip, closed, displaced. POSTOPERATIVE DIAGNOSIS: Femoral neck fracture, right hip, closed, displaced. SURGEON: Bill Alvarez MD BATTERY STACKER: Grant Sandy Jr MD ANESTHESIOLOGIST: Lou Ham MD, general anesthesia. PROCEDURE: Hemiarthroplasty, fractured right hip with Hernández [employer]hew bipolar prosthesis. DESCRIPTION OF PROCEDURE: Following satisfactory anesthesia by Dr. Ham, the patient was given intravenous antibiotics. A Lopez catheter was placed in the bladder by the OR nurse. She was placed in the left lateral decubitus position. A sterile plastic U-drape was used to seal off the perineum. The right hip and lower extremity were sterilely prepped and draped. Sterile stockinette was used over the extremity and sterile [place] over the hip. The routine time-out was performed. A posterolateral approach to the hip was made. The skin and subcutaneous tissue were reflected to each side and the fascia osvaldo and gluteal fascia divided with the scissors and blunt finger dissection. The Charnley retractor was placed. While holding the hip in internal rotation, the external rotator muscles were released from their attachment at the greater trochanter and tagged with two #1 Ethibond sutures for retraction and for later reattachment. The posterior capsule was incised. Cobra retractors were placed on each side of the neck and the oscillating saw used to divide the neck approximately 1 cm above the lesser trochanter. That portion of the neck and the head were removed. The head was measured at 45 mm diameter. The acetabulum was debrided and a 44-mm sizer selected as an appropriate size. The femoral presenter retractor was then placed under the proximal femur. The box chisel and then the canal finder were used and then progressive reamers to size 13. The canal was broached to 13. A trial fit was carried out with a -3 head/neck and a 44 mm head. Fit stability and range of motion were good. The trial components were removed and implants placed utilizing a 13 mm x 140 mm length [place] primary stem with a 28-mm ID and 44-mm OD head on a 28 mm -3 femoral head, all assembled. The hip was again reduced and taken through a range of motion, which was good. There was good stability. The wound was thoroughly irrigated and closed over a 3/16th inch Hemovac drain brought out proximally. The external rotator muscles were reattached to the greater trochanter via two drill holes in the trochanter, utilizing the previously placed #1 Ethibond sutures. The fascia osvaldo was closed with running #1 Vicryl stitch as was the gluteal fascia. This layer was injected with 30 mL of diluted Exparel. The subcutaneous layer was closed with running 2-0 Vicryl and rocio used on the skin. Another 30 mL of diluted Exparel was injected under the rocio. The wound was washed with chlorhexidine and dried. Betadine ointment, Xeroform gauze, and sterile dressings were applied. Estimated blood loss was 50 to 100 mL. Replacement zero. IMMEDIATE POSTOPERATIVE CONDITION: Good. BARRY# [id number] ROSE
[2017-06-22 06:18] LABS: % BASOPHILS 0.5 % (0.0-2.0); % EOSINOPHILS 1.6 % (0.0-5.0); % MONOCYTES 7.1 % (2.0-10.0); % NEUTROPHILS 82.8 % (40.0-80.0); EOSINOPHILE ABSOLUTE 0.1 Th/cmm (0.1-0.4); HEMATOCRIT 32.1 % (41.0-60); HEMOGLOBIN 10.9 gm/dL (12-16); LYMPHOCYTE ABSOLUTE 0.7 Th/cmm (1.5-3.0); MEAN CELL VOLUME 90.1 fl (81-100); MEAN CORPUSCULAR HEMOGLOBIN 30.7 pg (27.0-31.0); MEAN PLATELET VOLUME 7.2 fl; MONOCYTE ABSOLUTE 0.6 Th/cmm (0.3-1.0); NEUTROPHILE ABSOLUTE 7.7 Th/cmm (1.8-8.0); PLATELET COUNT 254 Th/cmm (150-400); RED BLOOD COUNT 3.56 Mil/cmm (3.80-5.20); RED CELL DISTRIBUTION WIDTH 12.4 % (11.5-20.0)
[2017-06-22 06:20] LABS: WHITE BLOOD COUNT 9.1 Th/cmm (4.8-10.8)
[2017-06-22 06:37] LABS: ANION GAP 9.7 (7.0-16.0); BUN - UREA NITROGEN 8 mg/dL (7-25); CALCIUM SERUM 7.9 mg/dL (8.6-10.3); CARBON DIOXIDE 23.3 mEq/L (21.0-31.0); CHLORIDE 107 mEq/L (98-107); CREATININE - SERUM 0.4 mg/dL (0.6-1.2); GLUCOSE 126 mg/dL (70-105); SODIUM SERUM 136 mEq/L (136-145)
[2017-06-22] MEDS: Aspirin 325 mg EC PO SCH ×2 (09:11→20:30)
[2017-06-22] MEDS: Multivitamin Tab PO SCH (09:11)
[2017-06-22] MEDS: Aspirin 81mg Chewable Tab PO SCH (09:11)
[2017-06-22] MEDS: Levothyroxine 0.025 Mg Tab PO SCH (09:22)
--- NOTE | 2017-06-22 15:08 | General Progress Note ---
Subjective - Review of Systems Events since last encounter: s/p right hip surgery 06/21 patient aleep comfortable Objective - Results Result Diagrams: 06/22/17 05:40 06/22/17 05:40 Recent Labs: Laboratory Last Values WBC 9.1 Th/cmm (4.8-10.8) D 06/22/17 05:40 RBC 3.56 Mil/cmm (3.80-5.20) L 06/22/17 05:40 Hgb 10.9 gm/dL (12-16) L 06/22/17 05:40 Hct 32.1 % (41.0-60) L D 06/22/17 05:40 MCV 90.1 fl (81-100) 06/22/17 05:40 MCH 30.7 pg (27.0-31.0) 06/22/17 05:40 MCHC Differential 34.0 pg (28.0-36.0) 06/22/17 05:40 RDW 12.4 % (11.5-20.0) 06/22/17 05:40 Plt Count 254 Th/cmm (150-400) 06/22/17 05:40 MPV 7.2 fl 06/22/17 05:40 Neutrophils % 82.8 % (40.0-80.0) H 06/22/17 05:40 Lymphocytes % 8.0 % (20.0-50.0) L 06/22/17 05:40 Monocytes % 7.1 % (2.0-10.0) 06/22/17 05:40 Eosinophils % 1.6 % (0.0-5.0) 06/22/17 05:40 Basophils % 0.5 % (0.0-2.0) 06/22/17 05:40 PT 10.3 SECONDS (9.5-11.5) 06/21/17 05:20 INR 0.99 (0.5-1.4) 06/21/17 05:20 PTT (Actin FS) 26.5 SECONDS (26.0-38.0) 06/21/17 05:20 Sodium 136 mEq/L (136-145) 06/22/17 05:40 Potassium 4.0 mEq/L (3.5-5.1) 06/22/17 05:40 Chloride 107 mEq/L (98-107) 06/22/17 05:40 Carbon Dioxide 23.3 mEq/L (21.0-31.0) 06/22/17 05:40 Anion Gap 9.7 (7.0-16.0) 06/22/17 05:40 BUN 8 mg/dL (7-25) 06/22/17 05:40 Creatinine 0.4 mg/dL (0.6-1.2) L 06/22/17 05:40 Est GFR ( Amer) TNP 06/22/17 05:40 Est GFR (Non-Af Amer) TNP 06/22/17 05:40 BUN/Creatinine Ratio 20.0 06/22/17 05:40 Glucose 126 mg/dL (70-105) H 06/22/17 05:40 Calcium 7.9 mg/dL (8.6-10.3) L 06/22/17 05:40 Total Bilirubin 0.9 mg/dL (0.3-1.0) 06/17/17 16:26 AST 21 U/L (13-39) 06/17/17 16:26 ALT 22 U/L (7-52) 06/17/17 16:26 Alkaline Phosphatase 89 U/L (34-104) 06/17/17 16:26 Total Protein 7.3 gm/dL (6.0-8.3) 06/17/17 16:26 Albumin 4.1 gm/dL (3.7-5.3) 06/17/17 16:26 Globulin 3.2 gm/dL 06/17/17 16:26 Albumin/Globulin Ratio 1.3 (1.0-1.8) 06/17/17 16:26 Triglycerides 75 mg/dL (<150) 06/18/17 06:00 Cholesterol 121 mg/dL (<200) 06/18/17 06:00 LDL Cholesterol Direct 48 mg/dL (75-193) L 06/18/17 06:00 HDL Cholesterol 64 mg/dL (23-92) 06/18/17 06:00 TSH 7.08 uIU/ml (0.34-5.60) H 06/18/17 06:00 Urine Source RANDOM 06/20/17 04:20 Urine Color ORANGE 06/20/17 04:20 Urine Clarity CLEAR (CLEAR) 06/20/17 04:20 Urine pH 6.0 (4.6 - 8.0) 06/20/17 04:20 Ur Specific [place] >= 1.030 (1.005-1.030) 06/20/17 04:20 Urine Protein TRACE mg/dL (NEGATIVE) 06/20/17 04:20 Urine Glucose (UA) NEGATIVE mg/dL (NEGATIVE) 06/20/17 04:20 Urine Ketones 15 mg/dL (NEGATIVE) H 06/20/17 04:20 Urine Blood NEGATIVE (NEGATIVE) 06/20/17 04:20 Urine Nitrate NEGATIVE (NEGATIVE) 06/20/17 04:20 Urine Bilirubin SMALL (NEGATIVE) H 06/20/17 04:20 Urine Urobilinogen 2.0 E.U./dL (0.2 - 1.0) 06/20/17 04:20 Ur Leukocyte Esterase NEGATIVE (NEGATIVE) 06/20/17 04:20 Urine RBC 0-2 /hpf (0-5) 06/20/17 04:20 Urine WBC 2-5 /hpf (0-5) 06/20/17 04:20 Ur Epithelial Cells MODERATE /lpf (FEW) 06/20/17 04:20 Urine Bacteria FEW /hpf (NONE SEEN) 06/20/17 04:20 Urine Mucus MODERATE /lpf (FEW) 06/20/17 04:20 - Physical Exam Vitals and I&O: Vital Signs Temp 97.3 F 06/22/17 11:43 Pulse 76 06/22/17 14:58 Resp 20 06/22/17 14:58 BP 98/45 06/22/17 11:43 Pulse Ox 98 06/22/17 14:58 Intake & Output 06/21/17 06/22/17 06/22/17 18:59 06:59 18:59 Intake Total 50 1200 860 Output Total 380 Balance 50 820 860 Weight (lbs) 51.313 kg 51.313 kg 51.313 kg Intake: Intake, IV Amount 50 1000 860 Sodium Chloride 0.9% 1, 1000 860 000 ml @ 150 mls/hr IV . Q6H40M [facility] Rx#:[id number] ceFAZolin 1 gm In 50 Dextrose 5% 50 ml @ 100 mls/hr IV Q8H [facility] Rx#: [id number] Oral 200 Output: Urine 300 Other 80 Other: # Bowel Movements 0 Active Medications: Current Medications Acetaminophen (Tylenol) 650 mg PO Q4HR PRN PRN Reason: Pain or Fever >101 Stop: 08/16/17 20:36 Acetaminophen (Tylenol Extra Strength) 1,000 mg PO Q4HR PRN PRN Reason: MOD PAIN Stop: 08/16/17 20:36 Last Admin: 06/19/17 08:54 Dose: 1,000 mg Amlodipine Besylate (Norvasc) 10 mg PO DAILY AKIKO Stop: 08/17/17 08:59 Last Admin: 06/22/17 09:11 Dose: 10 mg Aspirin (Aspirin Chewable) 81 mg PO DAILY AKIKO Stop: 08/17/17 08:59 Last Admin: 06/22/17 09:11 Dose: 81 mg Aspirin (Ecotrin) 325 mg PO Q12HR AKIKO Stop: 08/21/17 08:59 Last Admin: 06/22/17 09:11 Dose: 325 mg Atorvastatin Calcium (Lipitor) 40 mg PO HS AKIKO Stop: 08/17/17 20:59 Last Admin: 06/21/17 20:44 Dose: 40 mg Bisacodyl (Dulcolax 10 Mg Supp) 10 mg RC DAILY PRN PRN Reason: Constipation Stop: 08/16/17 20:36 Cholecalciferol (Vitamin D3) 1,000 iu PO DAILY AKIKO Stop: 08/17/17 08:59 Last Admin: 06/22/17 09:10 Dose: 1,000 iu Docusate Sodium (Colace) 100 mg PO BID AKIKO Stop: 08/17/17 08:59 Last Admin: 06/22/17 09:11 Dose: 100 mg Docusate Sodium (Colace) 100 mg PO DAILY PRN PRN Reason: Constipation Stop: 08/20/17 10:52 Donepezil HCl (Aricept) 10 mg PO DAILY AKIKO Stop: 08/17/17 08:59 Last Admin: 06/22/17 09:11 Dose: 10 mg Sodium Chloride (Nacl 0.9%) 1,000 mls @ 150 mls/hr IV .Q6H40M AKIKO Stop: 08/20/17 18:44 Last Admin: 06/22/17 09:09 Dose: 150 mls/hr Levothyroxine Sodium (Synthroid) 0.025 mg PO QDAC AKIKO Stop: 08/19/17 16:17 Last Admin: 06/22/17 09:22 Dose: 0.025 mg Magnesium Hydroxide (Milk Of Magnesia) 30 ml PO HS PRN PRN Reason: Constipation Stop: 08/16/17 20:36 Magnesium Hydroxide (Milk Of Magnesia) 30 ml PO HS PRN PRN Reason: Constipation Stop: 08/20/17 10:52 Memantine (Namenda) 10 mg PO HS AKIKO Stop: 08/16/17 20:59 Last Admin: 06/21/17 20:44 Dose: 10 mg Morphine Sulfate (Morphine) 2 mg IVP Q6HR PRN PRN Reason: Severe Pain Stop: 08/16/17 20:51 Last Admin: 06/17/17 21:48 Dose: 2 mg Multivitamins/Vitamin C (Theragran) 1 tab PO DAILY AKIKO Stop: 08/21/17 08:59 Last Admin: 06/22/17 09:11 Dose: 1 tab Ondansetron HCl (Zofran) 4 mg IV Q6HR PRN PRN Reason: Vomiting Stop: 08/16/17 20:51 Ondansetron HCl (Zofran) 4 mg IVP Q4H PRN PRN Reason: Nausea / Vomiting Stop: 08/20/17 10:52 Sodium Phosphate (Fleet Enema) 135 ml RC Q48H PRN PRN Reason: IF DULCOLAX INEFFECTIVE Stop: 08/16/17 20:36 General: No acute distress HEENT: Atraumatic Neck: Supple Cardiovascular: Regular rate, Normal S1, Normal S2 - Procedures Procedures: Procedures Procedure Code Date REPLACE OF R HIP JT, FEMORAL WITH SYNTH SUB, OPEN APPROACH [id number] 06/17/17 TREAT THIGH FRACTURE 09273 06/17/17 Assessment/Plan - Problem List Patient Problems: All Active Problems Fracture (healed) treatment follow-up (Acute) Z09 FREQUENT FALLS WITH LEFT FRONTAL ECCYMOS (Acute) - Plan Plan: pain management as per ortho Nutritional Asmnt/Malnutr-PDOC - Dietary Evaluation Malnutrition Findings (Please click <Entered> for more info): Nutritional Asmnt/Malnutrition Start: 06/22/17 14: 54 Text: Status: Active Freq: Document 06/22/17 14:54 ASTRID (Rec: 06/22/17 15:01 ASTRID [email or web address]) Nutritional Asmnt/Malnutrition Patient General Information Nutritional Screening Moderate Risk Diagnosis right femoral neck fx Pertinent Medical Hx/Surgical Hx dementia, Vitamin D deficiency , hyperlipidemia, HTN, OA Subjective Information Pt seen resting in bed during the time of elginist, s/p hip fx surgery day 1. Current Diet Order/ Nutrition Support regular Pertinent Medications vitamin D3, colace, synthroid, theragran, nacl 0.9% Pertinent Labs 06/22 Na 136, K 4.0, Cl 107, BUN 8, Cr 0.4, Glucose 126, Ca 7.9 Nutritional Hx/Data Height 1.57 m Height (Calculated Centimeters) 157.5 Current Weight (lbs) 51.256 kg Weight (Calculated Kilograms) 51.3 Weight (Calculated Grams) 98855.9 [place] Body Weight 110 % [place] Body Weight 102 Body Mass Index (BMI) 20.6 Weight Status Approriate GI Symptoms Usual diet at home Regular [facility]JA at [facility] Skin Integrity/Comment: intact Estimated Nutritional Goals BEE in Kcals: Using Current wt Calories/Kcals/Kg 30-35 Kcals Calculated 7053-3673 Protein: Using Current wt Protein g/k-1.2 Protein Calculated 51-61 Fluid: ml 3416-9471 Malnutrition Alert Protein-Calorie Malnutrition N/A Is there a minimum of two criteria No selected? Query Text:Check all the applicable criteria. A minimum of two criteria are recommended for diagnosis of either severe or non-severe malnutrition.
[2017-06-22] MEDS ORDERED: Sodium Chloride 0.9% 1,000 ML IV SCH (19:30)
[2017-06-22] MEDS ORDERED: ceFAZolin 1 GM in Sodium Chloride 0.9% 50 ML IV SCH (20:00)
--- NOTE | 2017-06-22 23:50 | General Progress Note ---
Subjective - Review of Systems Service Date: 06/22/17 (Does not seem to have any pain) Subjective: Has not been out of bed or had any therfapy today. Seems comfortable. Objective - Results Result Diagrams: 06/22/17 05:40 06/22/17 05:40 Recent Labs: Laboratory Last Values WBC 9.1 Th/cmm (4.8-10.8) D 06/22/17 05:40 RBC 3.56 Mil/cmm (3.80-5.20) L 06/22/17 05:40 Hgb 10.9 gm/dL (12-16) L 06/22/17 05:40 Hct 32.1 % (41.0-60) L D 06/22/17 05:40 MCV 90.1 fl (81-100) 06/22/17 05:40 MCH 30.7 pg (27.0-31.0) 06/22/17 05:40 MCHC Differential 34.0 pg (28.0-36.0) 06/22/17 05:40 RDW 12.4 % (11.5-20.0) 06/22/17 05:40 Plt Count 254 Th/cmm (150-400) 06/22/17 05:40 MPV 7.2 fl 06/22/17 05:40 Neutrophils % 82.8 % (40.0-80.0) H 06/22/17 05:40 Lymphocytes % 8.0 % (20.0-50.0) L 06/22/17 05:40 Monocytes % 7.1 % (2.0-10.0) 06/22/17 05:40 Eosinophils % 1.6 % (0.0-5.0) 06/22/17 05:40 Basophils % 0.5 % (0.0-2.0) 06/22/17 05:40 PT 10.3 SECONDS (9.5-11.5) 06/21/17 05:20 INR 0.99 (0.5-1.4) 06/21/17 05:20 PTT (Actin FS) 26.5 SECONDS (26.0-38.0) 06/21/17 05:20 Sodium 136 mEq/L (136-145) 06/22/17 05:40 Potassium 4.0 mEq/L (3.5-5.1) 06/22/17 05:40 Chloride 107 mEq/L (98-107) 06/22/17 05:40 Carbon Dioxide 23.3 mEq/L (21.0-31.0) 06/22/17 05:40 Anion Gap 9.7 (7.0-16.0) 06/22/17 05:40 BUN 8 mg/dL (7-25) 06/22/17 05:40 Creatinine 0.4 mg/dL (0.6-1.2) L 06/22/17 05:40 Est GFR ( Amer) TNP 06/22/17 05:40 Est GFR (Non-Af Amer) TNP 06/22/17 05:40 BUN/Creatinine Ratio 20.0 06/22/17 05:40 Glucose 126 mg/dL (70-105) H 06/22/17 05:40 Calcium 7.9 mg/dL (8.6-10.3) L 06/22/17 05:40 Total Bilirubin 0.9 mg/dL (0.3-1.0) 06/17/17 16:26 AST 21 U/L (13-39) 06/17/17 16:26 ALT 22 U/L (7-52) 06/17/17 16:26 Alkaline Phosphatase 89 U/L (34-104) 06/17/17 16:26 Total Protein 7.3 gm/dL (6.0-8.3) 06/17/17 16:26 Albumin 4.1 gm/dL (3.7-5.3) 06/17/17 16:26 Globulin 3.2 gm/dL 06/17/17 16:26 Albumin/Globulin Ratio 1.3 (1.0-1.8) 06/17/17 16:26 Triglycerides 75 mg/dL (<150) 06/18/17 06:00 Cholesterol 121 mg/dL (<200) 06/18/17 06:00 LDL Cholesterol Direct 48 mg/dL (75-193) L 06/18/17 06:00 HDL Cholesterol 64 mg/dL (23-92) 06/18/17 06:00 TSH 7.08 uIU/ml (0.34-5.60) H 06/18/17 06:00 Urine Source RANDOM 06/20/17 04:20 Urine Color ORANGE 06/20/17 04:20 Urine Clarity CLEAR (CLEAR) 06/20/17 04:20 Urine pH 6.0 (4.6 - 8.0) 06/20/17 04:20 Ur Specific [place] >= 1.030 (1.005-1.030) 06/20/17 04:20 Urine Protein TRACE mg/dL (NEGATIVE) 06/20/17 04:20 Urine Glucose (UA) NEGATIVE mg/dL (NEGATIVE) 06/20/17 04:20 Urine Ketones 15 mg/dL (NEGATIVE) H 06/20/17 04:20 Urine Blood NEGATIVE (NEGATIVE) 06/20/17 04:20 Urine Nitrate NEGATIVE (NEGATIVE) 06/20/17 04:20 Urine Bilirubin SMALL (NEGATIVE) H 06/20/17 04:20 Urine Urobilinogen 2.0 E.U./dL (0.2 - 1.0) 06/20/17 04:20 Ur Leukocyte Esterase NEGATIVE (NEGATIVE) 06/20/17 04:20 Urine RBC 0-2 /hpf (0-5) 06/20/17 04:20 Urine WBC 2-5 /hpf (0-5) 06/20/17 04:20 Ur Epithelial Cells MODERATE /lpf (FEW) 06/20/17 04:20 Urine Bacteria FEW /hpf (NONE SEEN) 06/20/17 04:20 Urine Mucus MODERATE /lpf (FEW) 06/20/17 04:20 - Physical Exam Vitals and I&O: Vital Signs Temp 99.5 F 06/22/17 20:00 Pulse 78 06/22/17 21:39 Resp 18 06/22/17 21:39 BP 92/42 06/22/17 20:00 Pulse Ox 97 06/22/17 21:39 Intake & Output 06/22/17 06/22/17 06/23/17 06:59 18:59 06:59 Intake Total 1200 2160 240 Output Total 380 750 10 Balance 820 1410 230 Weight (lbs) 51.313 kg 51.313 kg 51.256 kg Intake: Intake, IV Amount 1000 1860 Sodium Chloride 0.9% 1, 1000 1860 000 ml @ 150 mls/hr IV . Q6H40M [facility] Rx#:[id number] Oral 200 300 240 Output: Drainage 10 Right Hip 10 Urine 300 750 Other 80 Other: # Bowel Movements 0 0 Active Medications: Current Medications Acetaminophen (Tylenol) 650 mg PO Q4HR PRN PRN Reason: Pain or Fever >101 Stop: 08/16/17 20:36 Last Admin: 06/22/17 17:27 Dose: 650 mg Acetaminophen (Tylenol Extra Strength) 1,000 mg PO Q4HR PRN PRN Reason: MOD PAIN Stop: 08/16/17 20:36 Last Admin: 06/19/17 08:54 Dose: 1,000 mg Amlodipine Besylate (Norvasc) 10 mg PO DAILY AKIKO Stop: 08/17/17 08:59 Last Admin: 06/22/17 09:11 Dose: 10 mg Aspirin (Aspirin Chewable) 81 mg PO DAILY AKIKO Stop: 08/17/17 08:59 Last Admin: 06/22/17 09:11 Dose: 81 mg Aspirin (Ecotrin) 325 mg PO Q12HR AKIKO Stop: 08/21/17 08:59 Last Admin: 06/22/17 20:30 Dose: 325 mg Atorvastatin Calcium (Lipitor) 40 mg PO HS AKIKO Stop: 08/17/17 20:59 Last Admin: 06/22/17 20:30 Dose: 40 mg Bisacodyl (Dulcolax 10 Mg Supp) 10 mg RC DAILY PRN PRN Reason: Constipation Stop: 08/16/17 20:36 Cholecalciferol (Vitamin D3) 1,000 iu PO DAILY AKIKO Stop: 08/17/17 08:59 Last Admin: 06/22/17 09:10 Dose: 1,000 iu Docusate Sodium (Colace) 100 mg PO BID AKIKO Stop: 08/17/17 08:59 Last Admin: 06/22/17 17:01 Dose: 100 mg Docusate Sodium (Colace) 100 mg PO DAILY PRN PRN Reason: Constipation Stop: 08/20/17 10:52 Donepezil HCl (Aricept) 10 mg PO DAILY AKIKO Stop: 08/17/17 08:59 Last Admin: 06/22/17 09:11 Dose: 10 mg Sodium Chloride (Nacl 0.9%) 1,000 mls @ 100 mls/hr IV .Q10H AKIKO Stop: 08/21/17 19:29 Last Admin: 06/22/17 20:31 Dose: 100 mls/hr Cefazolin Sodium 1 gm/ Sodium (Chloride) 50 mls @ 100 mls/hr IV BID AKIKO Stop: 08/21/17 19:59 Last Admin: 06/22/17 21:12 Dose: 100 mls/hr Levothyroxine Sodium (Synthroid) 0.025 mg PO QDAC AKIKO Stop: 08/19/17 16:17 Last Admin: 06/22/17 09:22 Dose: 0.025 mg Magnesium Hydroxide (Milk Of Magnesia) 30 ml PO HS PRN PRN Reason: Constipation Stop: 08/16/17 20:36 Magnesium Hydroxide (Milk Of Magnesia) 30 ml PO HS PRN PRN Reason: Constipation Stop: 08/20/17 10:52 Memantine (Namenda) 10 mg PO HS AKIOK Stop: 08/16/17 20:59 Last Admin: 06/22/17 20:30 Dose: 10 mg Morphine Sulfate (Morphine) 2 mg IVP Q6HR PRN PRN Reason: Severe Pain Stop: 08/16/17 20:51 Last Admin: 06/17/17 21:48 Dose: 2 mg Multivitamins/Vitamin C (Theragran) 1 tab PO DAILY AKIKO Stop: 08/21/17 08:59 Last Admin: 06/22/17 09:11 Dose: 1 tab Ondansetron HCl (Zofran) 4 mg IV Q6HR PRN PRN Reason: Vomiting Stop: 08/16/17 20:51 Ondansetron HCl (Zofran) 4 mg IVP Q4H PRN PRN Reason: Nausea / Vomiting Stop: 08/20/17 10:52 Sodium Phosphate (Fleet Enema) 135 ml RC Q48H PRN PRN Reason: IF DULCOLAX INEFFECTIVE Stop: 08/16/17 20:36 General: No acute distress HEENT: Atraumatic Neck: Supple Cardiovascular: Regular rate, Normal S1, Normal S2 - Procedures Procedures: Procedures Procedure Code Date REPLACE OF R HIP JT, FEMORAL WITH SYNTH SUB, OPEN APPROACH [id number] 06/17/17 TREAT THIGH FRACTURE 33363 06/17/17 Assessment/Plan - Problem List Patient Problems: All Active Problems Fracture (healed) treatment follow-up (Acute) Z09 FREQUENT FALLS WITH LEFT FRONTAL ECCYMOS (Acute) - Plan Plan: OK to be transferred when medically stable - [facility] Orders, Mariia out in 2 weeks. Use abduction pillow for a month. Nutritional Asmnt/Malnutr-PDOC - Dietary Evaluation Malnutrition Findings (Please click <Entered> for more info): Nutritional Asmnt/Malnutrition Start: 06/22/17 14: 54 Text: Status: Complete Freq: Document 06/22/17 14:54 JOSSYJENNIFER (Rec: 06/22/17 15:01 JOSSYJENNIFER [email or web address]) Nutritional Asmnt/Malnutrition Patient General Information Nutritional Screening Moderate Risk Diagnosis right femoral neck fx Pertinent Medical Hx/Surgical Hx dementia, Vitamin D deficiency , hyperlipidemia, HTN, OA Subjective Information Pt seen resting in bed during the time of visist, s/p right hip surgery day 1. Spoke with [employer], pt had cream of wheat for breakfast, soup and rice for lunch. Pt took longer time to chew food like eggs and meat maybe d/t weakness, did fine with liquid. Pt has partial teeth noted. Per notes, PO intake 25-75%, avg 50% before surgery. Current Diet Order/ Nutrition Support regular Pertinent Medications vitamin D3, colace, synthroid, theragran, nacl 0.9% Pertinent Labs 06/22 Na 136, K 4.0, Cl 107, BUN 8, Cr 0.4, Glucose 126, Ca 7.9 Nutritional Hx/Data Height 1.57 m Height (Calculated Centimeters) 157.5 Current Weight (lbs) 51.256 kg Weight (Calculated Kilograms) 51.3 Weight (Calculated Grams) 96919.9 [place] Body Weight 110 % [place] Body Weight 102 Body Mass Index (BMI) 20.6 Weight Status Approriate GI Symptoms GI Symptoms None Last BM none Usual diet at home Regular [facility]JA at SNF Skin Integrity/Comment: intact Estimated Nutritional Goals BEE in Kcals: Using Current wt Calories/Kcals/Kg 30-35 Kcals Calculated 6412-2947 Protein: Using Current wt Protein g/k-1.2 Protein Calculated 51-61 Fluid: ml 7984-4421 Nutritional Problem 1. Problem Problem inadequate food intake Etiology possible poor appetite and weakness Signs/Symptoms: PO intake <50% Malnutrition Alert Protein-Calorie Malnutrition N/A Is there a minimum of two criteria No selected? Query Text:Check all the applicable criteria. A minimum of two criteria are recommended for diagnosis of either severe or non-severe malnutrition. Intervention/Recommendation Comments 1. Recommend Boost BID to increase nutrition intake d/t poor PO intake. 2. Monitor PO intake, diet tolerance, wt, labs and skin integrity 3. F/U as high risk in high risk in 2-3 days, 06/24-06/25 Expected Outcomes/Goals Expected Outcomes/Goals 1. PO to improve, Pt to meet at least 75% of nutritional needs 2. wt stability, skin to remain intact, labs to improve
[2017-06-23 06:18] LABS: % BASOPHILS 0.5 % (0.0-2.0); % EOSINOPHILS 3.1 % (0.0-5.0); % LYMPHOCYTES 7.3 % (20.0-50.0); % MONOCYTES 5.5 % (2.0-10.0); % NEUTROPHILS 83.6 % (40.0-80.0); EOSINOPHILE ABSOLUTE 0.3 Th/cmm (0.1-0.4); HEMOGLOBIN 9.7 gm/dL (12-16); LYMPHOCYTE ABSOLUTE 0.7 Th/cmm (1.5-3.0); MEAN CELL VOLUME 90.2 fl (81-100); MEAN CORPUSCULAR HEMOGLOBIN 30.5 pg (27.0-31.0); MEAN CORPUSCULAR HGB CONC 33.9 pg (28.0-36.0); MEAN PLATELET VOLUME 6.8 fl; MONOCYTE ABSOLUTE 0.5 Th/cmm (0.3-1.0); NEUTROPHILE ABSOLUTE 8.4 Th/cmm (1.8-8.0); PLATELET COUNT 256 Th/cmm (150-400); RED BLOOD COUNT 3.18 Mil/cmm (3.80-5.20); RED CELL DISTRIBUTION WIDTH 12.5 % (11.5-20.0); WHITE BLOOD COUNT 9.9 Th/cmm (4.8-10.8)
[2017-06-23 06:24] LABS: HEMATOCRIT 28.7 % (41.0-60)
[2017-06-23 06:48] LABS: ALB/GLOB RATIO 1.1 (1.0-1.8); ALBUMIN 2.6 gm/dL (3.7-5.3); ALKALINE PHOSPHATASE 54 U/L (34-104); BILIRUBIN,TOTAL 0.8 mg/dL (0.3-1.0); BUN - UREA NITROGEN 5 mg/dL (7-25); CALCIUM SERUM 7.8 mg/dL (8.6-10.3); CARBON DIOXIDE 23.4 mEq/L (21.0-31.0); CHLORIDE 106 mEq/L (98-107); CREATININE - SERUM 0.3 mg/dL (0.6-1.2); GLUCOSE 96 mg/dL (70-105); POTASSIUM SERUM 3.4 mEq/L (3.5-5.1); SGOT 21 U/L (13-39); SGPT/ALT 12 U/L (7-52); SODIUM SERUM 135 mEq/L (136-145)
[2017-06-23] MEDS: Levothyroxine 0.025 Mg Tab PO SCH (07:01)
[2017-06-23] MEDS: Aspirin 81mg Chewable Tab PO SCH (08:52)
[2017-06-23] MEDS: Multivitamin Tab PO SCH (08:52)
[2017-06-23] MEDS: Aspirin 325 mg EC PO SCH (08:55)
--- NOTE | 2017-06-23 09:02 | General Progress Note ---
Subjective - Review of Systems Events since last encounter: no change patient awake Objective - Results Result Diagrams: 06/23/17 05:56 06/23/17 05:56 Recent Labs: Laboratory Last Values WBC 9.9 Th/cmm (4.8-10.8) 06/23/17 05:56 RBC 3.18 Mil/cmm (3.80-5.20) L 06/23/17 05:56 Hgb 9.7 gm/dL (12-16) L 06/23/17 05:56 Hct 28.7 % (41.0-60) L D 06/23/17 05:56 MCV 90.2 fl (81-100) 06/23/17 05:56 MCH 30.5 pg (27.0-31.0) 06/23/17 05:56 MCHC Differential 33.9 pg (28.0-36.0) 06/23/17 05:56 RDW 12.5 % (11.5-20.0) 06/23/17 05:56 Plt Count 256 Th/cmm (150-400) 06/23/17 05:56 MPV 6.8 fl 06/23/17 05:56 Neutrophils % 83.6 % (40.0-80.0) H 06/23/17 05:56 Lymphocytes % 7.3 % (20.0-50.0) L 06/23/17 05:56 Monocytes % 5.5 % (2.0-10.0) 06/23/17 05:56 Eosinophils % 3.1 % (0.0-5.0) 06/23/17 05:56 Basophils % 0.5 % (0.0-2.0) 06/23/17 05:56 PT 10.3 SECONDS (9.5-11.5) 06/21/17 05:20 INR 0.99 (0.5-1.4) 06/21/17 05:20 PTT (Actin FS) 26.5 SECONDS (26.0-38.0) 06/21/17 05:20 Sodium 135 mEq/L (136-145) L 06/23/17 05:56 Potassium 3.4 mEq/L (3.5-5.1) L 06/23/17 05:56 Chloride 106 mEq/L (98-107) 06/23/17 05:56 Carbon Dioxide 23.4 mEq/L (21.0-31.0) 06/23/17 05:56 Anion Gap 9.0 (7.0-16.0) 06/23/17 05:56 BUN 5 mg/dL (7-25) L 06/23/17 05:56 Creatinine 0.3 mg/dL (0.6-1.2) L 06/23/17 05:56 Est GFR ( Amer) TNP 06/23/17 05:56 Est GFR (Non-Af Amer) TNP 06/23/17 05:56 BUN/Creatinine Ratio 16.7 06/23/17 05:56 Glucose 96 mg/dL (70-105) 06/23/17 05:56 Calcium 7.8 mg/dL (8.6-10.3) L 06/23/17 05:56 Total Bilirubin 0.8 mg/dL (0.3-1.0) 06/23/17 05:56 AST 21 U/L (13-39) 06/23/17 05:56 ALT 12 U/L (7-52) 06/23/17 05:56 Alkaline Phosphatase 54 U/L (34-104) 06/23/17 05:56 Total Protein 5.0 gm/dL (6.0-8.3) L 06/23/17 05:56 Albumin 2.6 gm/dL (3.7-5.3) L 06/23/17 05:56 Globulin 2.4 gm/dL 06/23/17 05:56 Albumin/Globulin Ratio 1.1 (1.0-1.8) 06/23/17 05:56 Triglycerides 75 mg/dL (<150) 06/18/17 06:00 Cholesterol 121 mg/dL (<200) 06/18/17 06:00 LDL Cholesterol Direct 48 mg/dL (75-193) L 06/18/17 06:00 HDL Cholesterol 64 mg/dL (23-92) 06/18/17 06:00 TSH 7.08 uIU/ml (0.34-5.60) H 06/18/17 06:00 Urine Source RANDOM 06/20/17 04:20 Urine Color ORANGE 06/20/17 04:20 Urine Clarity CLEAR (CLEAR) 06/20/17 04:20 Urine pH 6.0 (4.6 - 8.0) 06/20/17 04:20 Ur Specific [place] >= 1.030 (1.005-1.030) 06/20/17 04:20 Urine Protein TRACE mg/dL (NEGATIVE) 06/20/17 04:20 Urine Glucose (UA) NEGATIVE mg/dL (NEGATIVE) 06/20/17 04:20 Urine Ketones 15 mg/dL (NEGATIVE) H 06/20/17 04:20 Urine Blood NEGATIVE (NEGATIVE) 06/20/17 04:20 Urine Nitrate NEGATIVE (NEGATIVE) 06/20/17 04:20 Urine Bilirubin SMALL (NEGATIVE) H 06/20/17 04:20 Urine Urobilinogen 2.0 E.U./dL (0.2 - 1.0) 06/20/17 04:20 Ur Leukocyte Esterase NEGATIVE (NEGATIVE) 06/20/17 04:20 Urine RBC 0-2 /hpf (0-5) 06/20/17 04:20 Urine WBC 2-5 /hpf (0-5) 06/20/17 04:20 Ur Epithelial Cells MODERATE /lpf (FEW) 06/20/17 04:20 Urine Bacteria FEW /hpf (NONE SEEN) 06/20/17 04:20 Urine Mucus MODERATE /lpf (FEW) 06/20/17 04:20 - Physical Exam Vitals and I&O: Vital Signs Temp 98.7 F 06/23/17 04:00 Pulse 71 06/23/17 08:00 Resp 18 06/23/17 08:00 BP 115/50 06/23/17 04:00 Pulse Ox 98 06/23/17 08:00 Intake & Output 06/22/17 06/23/17 06/23/17 18:59 06:59 18:59 Intake Total 2160 440 Output Total 750 1060 Balance 1410 -620 Weight (lbs) 51.313 kg 58.513 kg Intake: Intake, IV Amount 1860 Sodium Chloride 0.9% 1, 1860 000 ml @ 150 mls/hr IV . Q6H40M AIKKO Rx#:[id number] Oral 300 440 Output: Drainage 10 Right Hip 10 Urine 750 1050 Other: # Bowel Movements 0 Active Medications: Current Medications Acetaminophen (Tylenol) 650 mg PO Q4HR PRN PRN Reason: Pain or Fever >101 Stop: 08/16/17 20:36 Last Admin: 06/22/17 17:27 Dose: 650 mg Acetaminophen (Tylenol Extra Strength) 1,000 mg PO Q4HR PRN PRN Reason: MOD PAIN Stop: 08/16/17 20:36 Last Admin: 06/19/17 08:54 Dose: 1,000 mg Amlodipine Besylate (Norvasc) 10 mg PO DAILY AKIKO Stop: 08/17/17 08:59 Last Admin: 06/23/17 08:55 Dose: Not Given Aspirin (Aspirin Chewable) 81 mg PO DAILY AKIKO Stop: 08/17/17 08:59 Last Admin: 06/23/17 08:52 Dose: 81 mg Aspirin (Ecotrin) 325 mg PO Q12HR AKIKO Stop: 08/21/17 08:59 Last Admin: 06/23/17 08:55 Dose: 325 mg Atorvastatin Calcium (Lipitor) 40 mg PO HS AKIKO Stop: 08/17/17 20:59 Last Admin: 06/22/17 20:30 Dose: 40 mg Bisacodyl (Dulcolax 10 Mg Supp) 10 mg RC DAILY PRN PRN Reason: Constipation Stop: 08/16/17 20:36 Cholecalciferol (Vitamin D3) 1,000 iu PO DAILY AKIKO Stop: 08/17/17 08:59 Last Admin: 06/23/17 08:53 Dose: 1,000 iu Docusate Sodium (Colace) 100 mg PO BID AKIKO Stop: 08/17/17 08:59 Last Admin: 06/23/17 08:53 Dose: 100 mg Docusate Sodium (Colace) 100 mg PO DAILY PRN PRN Reason: Constipation Stop: 08/20/17 10:52 Donepezil HCl (Aricept) 10 mg PO DAILY AKIKO Stop: 08/17/17 08:59 Last Admin: 06/23/17 08:53 Dose: 10 mg Sodium Chloride (Nacl 0.9%) 1,000 mls @ 100 mls/hr IV .Q10H AKIKO Stop: 08/21/17 19:29 Last Admin: 06/22/17 20:31 Dose: 100 mls/hr Cefazolin Sodium 1 gm/ (Dextrose) 50 mls @ 50 mls/hr IV Q12H AKIKO Stop: 08/22/17 08:59 Last Admin: 06/23/17 08:52 Dose: 50 mls/hr Levothyroxine Sodium (Synthroid) 0.025 mg PO QDAC AKIKO Stop: 08/19/17 16:17 Last Admin: 06/23/17 07:01 Dose: 0.025 mg Magnesium Hydroxide (Milk Of Magnesia) 30 ml PO HS PRN PRN Reason: Constipation Stop: 08/16/17 20:36 Magnesium Hydroxide (Milk Of Magnesia) 30 ml PO HS PRN PRN Reason: Constipation Stop: 08/20/17 10:52 Memantine (Namenda) 10 mg PO HS AKIKO Stop: 08/16/17 20:59 Last Admin: 06/22/17 20:30 Dose: 10 mg Morphine Sulfate (Morphine) 2 mg IVP Q6HR PRN PRN Reason: Severe Pain Stop: 08/16/17 20:51 Last Admin: 06/17/17 21:48 Dose: 2 mg Multivitamins/Vitamin C (Theragran) 1 tab PO DAILY AKIKO Stop: 08/21/17 08:59 Last Admin: 06/23/17 08:52 Dose: 1 tab Ondansetron HCl (Zofran) 4 mg IV Q6HR PRN PRN Reason: Vomiting Stop: 08/16/17 20:51 Ondansetron HCl (Zofran) 4 mg IVP Q4H PRN PRN Reason: Nausea / Vomiting Stop: 08/20/17 10:52 Sodium Phosphate (Fleet Enema) 135 ml RC Q48H PRN PRN Reason: IF DULCOLAX INEFFECTIVE Stop: 08/16/17 20:36 General: No acute distress HEENT: Atraumatic Neck: Supple Cardiovascular: Regular rate, Normal S1, Normal S2 - Procedures Procedures: Procedures Procedure Code Date REPLACE OF R HIP JT, FEMORAL WITH SYNTH SUB, OPEN APPROACH [id number] 06/17/17 TREAT THIGH FRACTURE 22582 06/17/17 Assessment/Plan - Problem List Patient Problems: All Active Problems Fracture (healed) treatment follow-up (Acute) Z09 FREQUENT FALLS WITH LEFT FRONTAL ECCYMOS (Acute) - Plan Plan: pain management as per ortho Nutritional Asmnt/Malnutr-PDOC - Dietary Evaluation Malnutrition Findings (Please click <Entered> for more info): Nutritional Asmnt/Malnutrition Start: 06/22/17 14: 54 Text: Status: Complete Freq: Document 06/22/17 14:54 LCHENG (Rec: 12/27/17 15:01 [facility] [id number]) Nutritional Asmnt/Malnutrition Patient General Information Nutritional Screening Moderate Risk Diagnosis right femoral neck fx Pertinent Medical Hx/Surgical Hx dementia, Vitamin D deficiency , hyperlipidemia, HTN, OA Subjective Information Pt seen resting in bed during the time of visist, s/p right hip surgery day 1. Spoke with PICTURE ENLARGER, pt had cream of wheat for breakfast, soup and rice for lunch. Pt took longer time to chew food like eggs and meat maybe d/t weakness, did fine with liquid. Pt has partial teeth noted. Per notes, PO intake 25-75%, avg 50% before surgery. Current Diet Order/ Nutrition Support regular Pertinent Medications vitamin D3, colace, synthroid, theragran, nacl 0.9% Pertinent Labs 06/22 Na 136, K 4.0, Cl 107, BUN 8, Cr 0.4, Glucose 126, Ca 7.9 Nutritional Hx/Data Height 1.57 m Height (Calculated Centimeters) 157.5 Current Weight (lbs) 51.256 kg Weight (Calculated Kilograms) 51.3 Weight (Calculated Grams) 13527.9 [place] Body Weight 110 % [place] Body Weight 102 Body Mass Index (BMI) 20.6 Weight Status Approriate GI Symptoms GI Symptoms None Last BM none Usual diet at home Regular K[facility]JA at [facility] Skin Integrity/Comment: intact Estimated Nutritional Goals BEE in Kcals: Using Current wt Calories/Kcals/Kg 30-35 Kcals Calculated 1769-4738 Protein: Using Current wt Protein g/k-1.2 Protein Calculated 51-61 Fluid: ml 6309-6919 Nutritional Problem 1. Problem Problem inadequate food intake Etiology possible poor appetite and weakness Signs/Symptoms: PO intake <50% Malnutrition Alert Protein-Calorie Malnutrition N/A Is there a minimum of two criteria No selected? Query Text:Check all the applicable criteria. A minimum of two criteria are recommended for diagnosis of either severe or non-severe malnutrition. Intervention/Recommendation Comments 1. Recommend Boost BID to increase nutrition intake d/t poor PO intake. 2. Monitor PO intake, diet tolerance, wt, labs and skin integrity 3. F/U as high risk in high risk in 2-3 days, 06/24-06/25 Expected Outcomes/Goals Expected Outcomes/Goals 1. PO to improve, Pt to meet at least 75% of nutritional needs 2. wt stability, skin to remain intact, labs to improve
[2017-06-23] MEDS ORDERED: Potassium Chloride 20 mEq ER Tab PO ONE ×2 (11:45→12:55)
--- NOTE | 2017-06-24 12:17 | Pathology Report ---
[id number] Collection date: 06/21/2017 Surgeon: Dr. Alireza Alvarez Specimen Description: Right femoral head Gross Description: Received in formalin is a femoral head measuring 4.5 x 4.5 x 3.5 cm with a smooth [place]ington articular cartilaginous surface. The femoral neck region shows hemorrhagic fragmentation consistent with fracture. Loom Mechanic sections are submitted in one cassette following decalcification. Microscopic Description: The histologic sections show femoral head bone and cartilage with hemorrhagic fragmentation in the femoral neck region consistent with fracture. Diagnosis: Hemorrhagic fragmentation consistent with fracture, right hip. [facility]# [id number] [facility]
== END 2017-06-23 14:17 | DRG 470 ==
LOC: ER 15:32 → MSI 17:38
PROVIDERS: ADMIT Internal Medicine; ATTEND Internal Medicine
PROC: 0SRR0JZ Replacement of Right Hip Joint, Femoral Surface with Synthetic Substitute, Open Approach (ICD-10-PCS; principal; 2017-06-21)
DX: S72.011A Unspecified intracapsular fracture of right femur, initial encounter for closed fracture (principal); F03.90 Unspecified dementia, unspecified severity, without behavioral disturbance, psychotic disturbance, mood disturbance, and anxiety; E03.9 Hypothyroidism, unspecified; E55.9 Vitamin D deficiency, unspecified; F41.9 Anxiety disorder, unspecified; M81.0 Age-related osteoporosis without current pathological fracture; E78.5 Hyperlipidemia, unspecified; M85.80 Other specified disorders of bone density and structure, unspecified site; R29.6 Repeated falls; I10 Essential (primary) hypertension; M19.90 Unspecified osteoarthritis, unspecified site; W18.30XA Fall on same level, unspecified, initial encounter; Y93.89 Activity, other specified; Y92.89 Other specified places as the place of occurrence of the external cause; Y99.8 Other external cause status; Z86.73 Personal history of transient ischemic attack (TIA), and cerebral infarction without residual deficits
CPT/HCPCS: 36415-UA; 72170-TC; 73501; 80048-TC; 80053-TC; 80061-TC; 81001-TC; 84443-TC; 85007-TC; 85025-TC; 85027-TC; 85610-TC; 93005; 94640; 94760; 96372; 96374; 96376; 97530; J0690; J2001; J2060; J2270; J2405; J2704; J2710; J3010; J3490; J7030; V2790; X3904; X6258; Z7610